=== PATIENT | male | born 1965 | race Caucasian/White ===

== ENCOUNTER 2020-12-26 18:41 | Observation (INO) | payer OTHER ==
[2020-12-26] MEDS ORDERED: Sodium Chloride 0.9% 1,000 ML IV ONE ×3 (19:07→23:22)
--- NOTE | 2020-12-26 20:17 | CR ---
INDICATION: Syncope TECHNIQUE: Chest 1 view. COMPARISON: 08/23/2014 FINDINGS: Cardiovascular and mediastinum: Heart size and vasculature are normal in caliber and appearance. Mediastinum is within normal limits. Lungs and pleural space: Lungs are clear. No sign of infiltrate. Multiple bilateral sub centimeter probable calcified granulomas. No sign of pleural effusion. No pneumothorax. Bones and soft tissues: No significant findings. IMPRESSION: No acute findings. Multiple bilateral probable subcentimeter calcified granulomas. Dictated by Db To MD @ 12/26/2020 8:16:41 PM (Electronically Signed)
--- NOTE | 2020-12-26 20:19 | CT ---
Indication: SYNCOPE W HEAD INJURY Technique: CT of the head without contrast. Coronal and sagittal reformats. Bone and soft tissue windows. Comparison: No prior studies available for comparison at this institution. Findings: Small hyperdense focus in the extra-axial space along the right anterior frontal cortex concerning for small subarachnoid hemorrhage (series 205, image 48). No evidence of acute cortical infarction. No mass effect or midline shift. Normal cerebral volume. The ventricles are normal in size, shape and contour. There is normal garcia and white matter differentiation. A few small foci of hypoattenuation in the right frontal and left parietal holloway radiata likely represent remote lacunar infarcts or chronic small vessel white matter ischemic changes. The orbital contents are normal. No calvarial fractures. No lytic or sclerotic osseous lesions within the calvarium or skull base. Scalp and other imaged soft tissue structures are normal. Mastoid air cells are clear. Paranasal sinuses are well aerated. The nasal septum is deviated to the right Impression: 1. Small hyperdense focus in the extra-axial space along the right anterior frontal cortex concerning for small subarachnoid hemorrhage. 2. Few small foci of hypoattenuation in the right frontal and left parietal holloway radiata likely represent remote lacunar infarcts or chronic small vessel white matter ischemic changes. Please note that all CT scans at this facility use dose modulation, iterative reconstruction, and/or weight-based dosing when appropriate to reduce radiation dose to as low as reasonably achievable. Dictated by Db Toledo MD @ 12/26/2020 8:17:55 PM (Electronically Signed)
[2020-12-26 21:21] LABS: BLOOD UREA NITROGEN,BUN 27 mg/dL (7.0-18.0); CARBON DIOXIDE,CO2 28.9 mmol/L (21.0-32.0); CHLORIDE,CL 96 mmol/L (98-107); GLUCOSE RANDOM 408 mg/dL (74-106); POTASSIUM,K 3.4 mmol/L (3.5-5.1); SODIUM,NA 134 mmol/L (136-148)
[2020-12-26] MEDS ORDERED: Iopamidol 755 MG/ML 500 ML Multipack Bottle IVPUSH STA (21:50)
[2020-12-26] MEDS ORDERED: Diphtheria,Pertussis(Acell),Tetanus Vaccine 0.5 ML Syringe IM ONE (21:51)
--- NOTE | 2020-12-26 21:58 | EDM.PDOC ---
<SarojSamir phelps - Last Filed: 12/27/20 03:14> ED HPI GENERAL MEDICAL PROBLEM - General Chief Complaint: General Stated Complaint: PASSED OUT Time Seen by Provider: 12/26/20 19:07 - History of Present Illness INITIAL COMMENTS - FREE TEXT/NARRATIVE: 3:15 AM: Patient's presentation reviewed. Patient's CT scan of his head reveals a small subarachnoid and is frontal cortex. Patient has a CTA which did not r eveal any evidence of aneurysm. Given the patient's presentation, this appears to be most likely consistent with a traumatic subarachnoid hemorrhage from syncope. Repeat CT scan of the head was performed here in the ED without any change in the size of the subarachnoid hemorrhage that was identified at the earlier CT scan of his head. Patient will need admission to the hospital secondary to his history of hypertension, diabetes and syncopal episode. Patient was noted to have Covid positive. It appears that he likely passed out secondary to vasovagal versus dehydration when he started having severe abdominal cramping and diarrhea resulting in him having an accident on himself. Given his high risk factors however I feel the patient will need to be admitted to the hospital for further evaluation of syncope. Patient did fall down and hit the left side of his face and there are is significant amount of facial abrasions to that area. Case has been discussed with Dr. Vilchis at [facility] and she feels that this patient likely has a small subarachnoid hemorrhage that is traumatic in nature. Given that there has been no changes from the CT scan earlier today she feels that the patient would not need further emergent intervention from a neurological or neurosurgical standpoint. She has recommended no further CT scans unless the patient has any change or deteriora tion in his mental condition. Patient has been given IV fluids here in the ED. Patient will be admitted to Dr. Lubin service. I have discussed the case with Dr. Lubin who is agreed to admit patient under observation for further monitoring and evaluation as well as hydration. - Related Data Allergies Allergy/AdvReac Type Severity Reaction Status Date / Time No Known Allergies Allergy Verified 12/27/20 04:52 Home Meds: Home Meds Venlafaxine [Effexor XR] 150 mg PO DAILY 07/22/14 [History] Chlorthalidone 12.5 mg PO DAILY #10 tab 12/27/20 [Rx] Losartan Potassium 100 mg PO DAILY 12/27/20 [History] Metoprolol Succinate 200 mg PO DAILY 12/27/20 [History] Semaglutide [Ozempic] 1 mg SQ ASDIRECTED 12/27/20 [History] metFORMIN [Glucophage XR] 1,000 mg PO BIDMEALS 12/27/20 [History] ED ROS GENERAL - Review of Systems Review Of Systems: See Below ED EXAM, GENERAL - Physical Exam Exam: See Below #1 Interpretation EKG Interpretation Comments: EKG: As interpreted by ER physician: Saroj: Nonspecific ST-T wave abnormalities Normal axis No evidence of ST elevation HI Normal sinus rhythm heart rate of 65 December 26, 2020 7:10 PM Departure - Departure Time of Disposition: 03:18 Disposition: Refer to Observation Condition: Good Clinical Impression: Hemorrhage, subarachnoid, traumatic, Syncope, Dehydration, COVID-19 virus infection, Hyperglycemia - Discharge Information <RosiSamira - Last Filed: 12/28/20 10:03> ED HPI GENERAL MEDICAL PROBLEM - General Source of Information: Reports: Patient History Limitations: Reports: No Limitations - History of Present Illness INITIAL COMMENTS - FREE TEXT/NARRATIVE: HISTORY AND PHYSICAL: History of present illness: Patient is a 55-year-old male, with a history of type 2 diabetes and hypertension, who presents emergency room today via EMS with concern of a syncopal event and head injury that occurred just prior to travel to the emergency room. Patient states that he was at the gas station filling up gas. Patient states while he was standing next to his vehicle, he began to feel dizzy/lightheaded. Patient states because of this, he started walking into the gas station as he was going to try to find somewhere to sit. Patient states in the process of walking into the gas station, the dizziness lightheadedness became worse and he had an incontinent of stool episode and states that he began falling forward. Patient states that he does not remember the event from here but states that he woke up on the ground and had sustained abrasions to the left side of his face. Patient states he is unsure of his tetanus status and would like to update this today. Patient states that he has never had this occur before. Patient denies any current symptoms at this time. Patient denies fever, chills, chest pain, shortness of breath, or cough. Denies headache, neck stiff ness, change in vision. Denies nausea, vomiting, abdominal pain, constipation, or dysuria. Has not noted any blood in urine or stool. Patient has been eating and drinking appropriately. Review of systems: As per history of present illness and below otherwise all systems reviewed and negative. Past medical history: As per history of present illness and as reviewed below otherwise noncontributory. Surgical history: As per history of present illness and as reviewed below otherwise noncontributory. Social history: See social history for further information Family history: As per history of present illness and as reviewed below otherwise noncontributory. Physical exam: General: Patient is alert, oriented, and in no acute distress. Patient laying comfortably on exam table. Vitals stable and reviewed by me. HEENT: See skin. Otherwise, atraumatic, normocephalic, pupils equal and reactive bilaterally, negative for conjunctival pallor or scleral icterus, mucous membranes moist, throat clear, neck supple, nontender, trachea midline. No drooling or trismus noted. No meningeal signs. No hot potato voice noted. Lungs: Clear to auscultation, breath sounds equal bilaterally, chest nontender. Heart: S1S2, regular rate and rhythm without overt murmur Abdomen: Soft, nondistended, nontender. Negative for masses or hepatosplenomegaly. Negative for costovertebral tenderness. Pelvis: Stable nontender. Genitourinary: Deferred. Rectal: Deferred. Note that patient is incontinent of stool on exam. Skin: Multiple superficial abrasions of the left sided cheek without crepitus to palpation. Patient also has some superficial abrasions of his nose and upper lip without laceration. Otherwise, intact, warm, dry. No lesions or rashes noted. Extremities: Atraumatic, negative for cords or calf pain. Neurovascular unremarkable. Neuro: Awake, alert, oriented. Cranial nerves II through XII unremarkable. Cerebellum unremarkable. Motor and sensory unremarkable throughout. Exam nonfocal. Notes: Patient is a 55-year-old male who resents emergency room today via EMS after a syncopal event that was preceded with dizziness and head injury. Upon arrival to the ED, patient does have multiple superficial abrasions to the left side of his face nose and lip without laceration. Patient is also incontinent of stool on exam. Otherwise, patient is vitally stable and has no other symptoms at this time. Will obtain cardiac evaluation, head CT given syncopal event with head injury, provide patient with a change of clothing and shower, and reassess patient. See Dr. Kyle dictation for specific EKG interpretation. However, normal sinus rhythm without STEMI. CBC shows mild thrombocytopenia with platelet count of 127, otherwise mild derangements of CBC unremarkable. CMP shows mild hyponatremia at 134, hypokalemia at 3.4, hyperchloremia 96. Creatinine is elevated at 1.6 and BUN is elevated at 27. Glucose is elevated at 408. Troponin negative. Head CT shows no acute findings. Multiple bilateral probable subcentimeter calcified granulomas. All incidental findings of imaging today discussed with patient and have this followed up at a later date with his primary care provider. Will obtain Ang Head/Neck Head CT w/o contrast shows small hyperdense focus in the extra-axial space along the right anterior frontal cortex concerning for a small subarachnoid hemorrhage. Few small foci of hypoattenuation in the right frontal and left parietal holloway radiata likely representing remote lacunar infarcts and chronic small vessel white matter ischemic changes. Dr. Kyle has assumed care of patient and will follow remaining diagnostics and disposition for patient. Diagnostics: EKG, CBC, CMP, UA, chest x-ray 1 view, troponin, head CT without contrast, angiography head and neck CT, COVID-19 Therapeutics: Normal saline, Tdap Impression: Syncope Superficial abrasions, multiple, facial Plan: Definitive disposition and diagnosis as appropriate pending reevaluation and review of above. Past Medical History HEENT History: Reports: None Cardiovascular History: Reports: Hypertension Respiratory History: Reports: None Gastrointestinal History: Reports: None Genitourinary History: Reports: None Musculoskeletal History: Reports: None Neurological History: Reports: None Psychiatric History: Reports: Depression Endocrine/Metabolic History: Reports: Diabetes, Type II Hematologic History: Reports: None Immunologic History: Reports: None Oncologic (Cancer) History: Reports: None Dermatologic History: Reports: None - Infectious Disease History Infectious Disease History: Reports: Chicken Pox - Past Surgical History Head Surgeries/Procedures: Reports: None Social & Family History - Tobacco Use Tobacco Use Status *Q: Never Tobacco User - Caffeine Use Caffeine Use: Reports: Coffee - Recreational Drug Use Recreational Drug Use: No ED ROS GENERAL - Review of Systems Review Of Systems: Comprehensive ROS is negative, except as noted in HPI. ED EXAM, GENERAL - Physical Exam Exam: See Below (see dictation) Course - Vital Signs Last Recorded V/S: Last Vital Signs Temp 97.4 F 12/28/20 08:10 Pulse 80 12/28/20 08:39 Resp 18 12/28/20 08:10 BP 148/83 H 12/28/20 08:39 Pulse Ox 94 L 12/28/20 08:10 Orthostatic Blood Pressure [ 117/77 Standing] Orthostatic Blood Pressure [ 121/62 Sitting] Orthostatic Blood Pressure [ 138/82 Supine] - Orders/Labs/Meds Orders: Medication Orders Acetaminophen (Acetaminophen 325 Mg Tab) 650 mg PO Q4H PRN PRN Reason: Pain Last Admin: 12/28/20 04:12 Dose: 650 mg Documented by: Admin: 12/27/20 21:53 Dose: 650 mg Documented by: Admin: 12/27/20 17:59 Dose: 650 mg Documented by: HERNESTO Albuterol/Ipratropium (Albuterol/Ipratropium 3.0-0.5 Mg/3 Ml Neb Soln) 3 ml NEB Q4HRRT PRN PRN Reason: Shortness of Breath Dextrose/Water (50% Dextrose In Water 50 Ml Syringe) 50 ml IVPUSH ASDIRECTED PRN PRN Reason: Hypoglycemia Glucagon (Glucagon,Human Recombinant 1 Mg Vial) 1 mg IM ASDIRECTED PRN PRN Reason: Hypoglycemia Pantoprazole Sodium 40 mg/ (Sodium Chloride) 10 mls @ 300 mls/hr IV Q24H [facility] Last Admin: 12/28/20 06:38 Dose: 300 mls/hr Documented by: Infusion: 12/27/20 06:53 Dose: 300 mls/hr Documented by: Admin: 12/27/20 06:51 Dose: 300 mls/hr Documented by: SINDI Insulin Aspart (Insulin Aspart 100 Units/Ml 3 Ml Pen) 0 unit SUBCUT TIDAC [facility]; Protocol Last Admin: 12/28/20 07:46 Dose: 3 unit Documented by: Admin: 12/27/20 17:46 Dose: 3 unit Documented by: Admin: 12/27/20 11:55 Dose: Not Given Documented by: Admin: 12/27/20 09:37 Dose: Not Given Documented by: HERNESTO Losartan Potassium (Losartan 50 Mg Tab) 100 mg PO DAILY [facility] Last Admin: 12/28/20 08:39 Dose: 100 mg Documented by: HERNESTO Metoprolol Succinate (Metoprolol Succinate 100 Mg Tab.Er) 200 mg PO DAILY [facility] Last Admin: 12/28/20 08:39 Dose: 200 mg Documented by: Admin: 12/27/20 10:11 Dose: 200 mg Documented by: HERNESTO Ondansetron HCl (Ondansetron 4 Mg/2 Ml Sdv) 4 mg IVPUSH Q4H PRN PRN Reason: Nausea/Vomiting Venlafaxine HCl (Venlafaxine 75 Mg Cap.Er) 150 mg PO DAILY [facility] Last Admin: 12/28/20 08:39 Dose: 150 mg Documented by: Admin: 12/27/20 14:48 Dose: 150 mg Documented by: HERNESTO Labs: Laboratory Tests 12/26/20 12/26/20 12/26/20 Range/Units 20:51 20:51 22:04 WBC 7.10 (4.0-11.0) K/uL RBC 4.92 (4.50-5.90) M/uL Hgb 15.7 (13.0-17.0) g/dL Hct 41.5 (38.0-50.0) % MCV 84.3 (80.0-98.0) fL MCH 31.9 (27.0-32.0) pg MCHC 37.8 H (31.0-37.0) g/dL RDW Std Deviation 38.1 (28.0-62.0) fl RDW Coeff of Ivon 13 (11.0-15.0) % Plt Count 127 L (150-400) K/uL MPV 10.50 (7.40-12.00) fL Neut % (Auto) 72.4 (48.0-80.0) % Lymph % (Auto) 19.2 (16.0-40.0) % Amador % (Auto) 8.0 (0.0-15.0) % Eos % (Auto) 0.3 (0.0-7.0) % Baso % (Auto) 0.1 (0.0-1.5) % Neut # (Auto) 5.1 (1.4-5.7) K/uL Lymph # (Auto) 1.4 (0.6-2.4) K/uL Amador # (Auto) 0.6 (0.0-0.8) K/uL Eos # (Auto) 0.0 (0.0-0.7) K/uL Baso # (Auto) 0.0 (0.0-0.1) K/uL Nucleated RBC % 0.0 /100WBC Nucleated RBCs # 0 K/uL Sodium 134 L (136-148) mmol/L Potassium 3.4 L (3.5-5.1) mmol/L Chloride 96 L (98-107) mmol/L Carbon Dioxide 28.9 (21.0-32.0) mmol/L BUN 27 H (7.0-18.0) mg/dL Creatinine 1.6 H (0.8-1.3) mg/dL Est Cr Clr Drug Dosing 54.25 mL/min Estimated GFR (MDRD) 44.8 ml/min Glucose 408 H (74-106) mg/dL POC Glucose (70-99) mg/dL Calcium 7.3 L (8.5-10.1) mg/dL Total Bilirubin 1.0 (0.2-1.0) mg/dL AST 23 (15-37) IU/L ALT 53 (14-63) IU/L Alkaline Phosphatase 89 (46-116) U/L Troponin I < 0.050 (0.000-0.056) ng/mL Total Protein 5.8 L (6.4-8.2) g/dL Albumin 3.0 L (3.4-5.0) g/dL Globulin 2.8 (2.6-4.0) g/dL Albumin/Globulin Ratio 1.1 (0.9-1.6) SARS-CoV-2 RNA ([place]) POSITIVE H (NEGATIVE) 12/26/20 Range/Units 22:12 WBC (4.0-11.0) K/uL RBC (4.50-5.90) M/uL Hgb (13.0-17.0) g/dL Hct (38.0-50.0) % MCV (80.0-98.0) fL MCH (27.0-32.0) pg MCHC (31.0-37.0) g/dL RDW Std Deviation (28.0-62.0) fl RDW Coeff of Ivon (11.0-15.0) % Plt Count (150-400) K/uL MPV (7.40-12.00) fL Neut % (Auto) (48.0-80.0) % Lymph % (Auto) (16.0-40.0) % Amador % (Auto) (0.0-15.0) % Eos % (Auto) (0.0-7.0) % Baso % (Auto) (0.0-1.5) % Neut # (Auto) (1.4-5.7) K/uL Lymph # (Auto) (0.6-2.4) K/uL Amador # (Auto) (0.0-0.8) K/uL Eos # (Auto) (0.0-0.7) K/uL Baso # (Auto) (0.0-0.1) K/uL Nucleated RBC % /100WBC Nucleated RBCs # K/uL Sodium (136-148) mmol/L Potassium (3.5-5.1) mmol/L Chloride (98-107) mmol/L Carbon Dioxide (21.0-32.0) mmol/L BUN (7.0-18.0) mg/dL Creatinine (0.8-1.3) mg/dL Est Cr Clr Drug Dosing mL/min Estimated GFR (MDRD) ml/min Glucose (74-106) mg/dL POC Glucose 361 H (70-99) mg/dL Calcium (8.5-10.1) mg/dL Total Bilirubin (0.2-1.0) mg/dL AST (15-37) IU/L ALT (14-63) IU/L Alkaline Phosphatase (46-116) U/L Troponin I (0.000-0.056) ng/mL Total Protein (6.4-8.2) g/dL Albumin (3.4-5.0) g/dL Globulin (2.6-4.0) g/dL Albumin/Globulin Ratio (0.9-1.6) SARS-CoV-2 RNA ([place]) (NEGATIVE) Meds: Medications Generic Name Dose Route Start Last Admin Trade Name Freq PRN Reason Stop Dose Admin Acetaminophen 650 mg 10/01/21 05:54 12/28/20 04:12 Acetaminophen 325 Mg Tab PO 650 mg Q4H PRN Administration Pain Albuterol/Ipratropium 3 ml 12/27/20 05:55 Albuterol/Ipratropium 3.0-0.5 Mg/3 Ml Neb Soln NEB Q4HRRT PRN Shortness of Breath Dextrose/Water 50 ml 12/27/20 05:53 50% Dextrose In Water 50 Ml Syringe IVPUSH ASDIRECTED PRN Hypoglycemia Glucagon 1 mg 12/27/20 05:53 Glucagon,Human Recombinant 1 Mg Vial IM ASDIRECTED PRN Hypoglycemia Pantoprazole Sodium 40 mg/ 10 mls @ 300 mls/hr 12/27/20 06:00 12/28/20 06:38 Sodium Chloride IV 300 mls/hr Q24H JONATHAN Administration Insulin Aspart 0 unit 12/27/20 07:30 12/28/20 07:46 Insulin Aspart 100 Units/Ml 3 Ml Pen SUBCUT 3 unit TIDAC JONATHAN Administration Protocol Losartan Potassium 100 mg 12/28/20 09:00 12/28/20 08:39 Losartan 50 Mg Tab PO 100 mg DAILY JONATHAN Administration Metoprolol Succinate 200 mg 12/27/20 09:00 12/28/20 08:39 Metoprolol Succinate 100 Mg Tab.Er PO 200 mg DAILY JONATHAN Administration Ondansetron HCl 4 mg 12/27/20 05:55 Ondansetron 4 Mg/2 Ml Sdv IVPUSH Q4H PRN Nausea/Vomiting Venlafaxine HCl 150 mg 12/27/20 14:15 12/28/20 08:39 Venlafaxine 75 Mg Cap.Er PO 150 mg DAILY JONATHAN Administration Discontinued Medications Generic Name Dose Route Start Last Admin Trade Name Freq PRN Reason Stop Dose Admin Diphtheria/Tetanus/Acell Pertussis 0.5 ml 12/26/20 21:51 12/26/20 22:06 Diphtheria,Pertussis(Acell),Tetanus Vaccine 0.5 Ml Syringe IM 12/26/20 21:52 0.5 ml .ONCE ONE Administration Enoxaparin Sodium 40 mg 12/27/20 06:00 12/27/20 07:56 Enoxaparin 40 Mg/0.4 Ml Syringe SUBCUT Not Given Q24H JONATHAN Sodium Chloride 1,000 mls @ 999 mls/hr 12/26/20 19:07 12/26/20 19:19 Normal Saline IV 12/26/20 20:07 999 mls/hr BOLUS ONE Administration Sodium Chloride 1,000 mls @ 999 mls/hr 12/26/20 22:25 12/26/20 22:28 Normal Saline IV 12/26/20 23:25 999 mls/hr STAT ONE Administration Sodium Chloride 1,000 mls @ 999 mls/hr 12/26/20 23:22 12/26/20 23:49 Normal Saline IV 12/27/20 00:22 999 mls/hr .Bolus ONE Administration Lactated Ringer's 1,000 mls @ 100 mls/hr 12/27/20 06:00 12/27/20 07:53 Ringers, Lactated IV 100 mls/hr ASDIRECTED JONATHAN Administration Iopamidol 100 ml 12/26/20 21:50 12/26/20 21:51 Iopamidol 755 Mg/Ml 500 Ml Multipack Bottle IVPUSH 12/26/20 21:51 100 ml ONETIME STA Administration Potassium Chloride 40 meq 12/27/20 07:48 12/27/20 10:12 Potassium Chloride 20 Meq Tab.Er PO 12/27/20 07:49 40 meq ONETIME ONE Administration Potassium Chloride 40 meq 12/28/20 07:35 12/28/20 08:40 Potassium Chloride 20 Meq Tab.Er PO 12/28/20 07:36 40 meq ONETIME ONE Administration
--- NOTE | 2020-12-26 22:35 | CT ---
CT ANGIOGRAM HEAD AND NECK DATE: 12/26/2020 CLINICAL HISTORY: Patient with post-traumatic subarachnoid hemorrhage. TECHNIQUE: Standard helical CT image acquisition through the head and neck was performed after intravenous contrast bolus enhancement. Multiplanar reconstructed images were performed and interpreted. COMPARISON: CT same day. FINDINGS: The origins of the great vessels from the aortic arch are patent. The origin of the right vertebral artery is patent. The origin of the left vertebral artery is patent. The common carotid arteries are patent There is no stenosis at the origin of the right internal carotid artery. There is no stenosis at the origin of the left internal carotid artery. The rest of the cervical segments of the internal carotid arteries are patent up to their intracranial segments. The intracranial segments of the internal carotid arteries are patent. The left vertebral artery is dominant. The cervical segments of the vertebral arteries are patent. The intracranial segments of the vertebral arteries are patent. The middle cerebral arteries are normal without aneurysm or proximal occlusion identified. The anterior cerebral arteries are normal without aneurysm or proximal occlusion identified. The anterior communicating artery is well visualized and appears normal. The basilar artery is normal without aneurysm or occlusion. The posterior cerebral arteries are normal without aneurysm or proximal occlusion. There is normal opacification of major intracranial venous structures. The visualized lung apices are unremarkable The thyroid gland is unremarkable. The soft tissues of the neck are unremarkable. There are degenerative changes in the cervical spine. IMPRESSION: Normal CT angiogram of the head and neck without intracranial aneurysms. Please note that all CT scans at this facility use dose modulation, iterative reconstruction, and/or weight-based dosing when appropriate to reduce radiation dose to as low as reasonably achievable. Dictated by: Maci Gipson MD @ 12/26/2020 22:34:09 (Electronically Signed)
--- NOTE | 2020-12-27 02:06 | CT ---
INDICATION: Headache. Injury. Follow-up possible intracranial hemorrhage. CT HEAD WITHOUT CONTRAST TECHNIQUE: Multiple axial CT images were performed through the head without intravenous contrast administration. COMPARISON: 12/26/[address] FINDINGS: There has been no significant change in the subtle small focus of extra-axial hyperdensity along the anterior aspect of the right frontal lobe as seen on images 49-50 of series 205, questionably representing a trace amount of subarachnoid hemorrhage. There is no mass effect or midline shift. There is very mild diffuse age-related brain atrophy. Ventricular size and configuration are within normal limits for the patient`s age. Welch-white differentiation is within normal limits. There is unchanged mild patchy hypodensity in the periventricular white matter, a nonspecific finding which most likely reflects chronic small vessel ischemic change. Osseous structures are within normal limits and no fractures are seen. Included portions of the paranasal sinuses and mastoid air cells are normally aerated. IMPRESSION: 1. Unchanged small hyperdensity along the anterior aspect of the right frontal lobe, questionably representing a trace amount of subarachnoid hemorrhage. 2. Mild age-related brain atrophy and white matter hypodensity consistent with chronic small vessel ischemic change. FLOR BRUNO MD [employer] Dictated by Juan Bruno MD @ 12/27/2020 1:57:40 AM Please note that all CT scans at this facility use dose modulation, iterative reconstruction, and/or weight-based dosing when appropriate to reduce radiation dose to as low as reasonably achievable. Dictated by: Juan Bruno MD @ 12/27/2020 02:05:43 (Electronically Signed)
[2020-12-27] MEDS ORDERED: Glucagon,Human Recombinant 1 MG Vial IM PRN (05:53)
[2020-12-27] MEDS ORDERED: 50% Dextrose in Water 50 ML Syringe IVPUSH PRN (05:53)
[2020-12-27] MEDS ORDERED: Albuterol/Ipratropium 3.0-0.5 MG/3 ML Neb Soln NEB PRN (05:55)
[2020-12-27] MEDS ORDERED: Ondansetron 4 MG/2 ML SDV IVPUSH PRN (05:55)
[2020-12-27] MEDS ORDERED: Enoxaparin 40 MG/0.4 ML Syringe SUBCUT SCH (06:00)
[2020-12-27] MEDS ORDERED: Lactated Ringers 1,000 ML IV SCH (06:00)
[2020-12-27] MEDS: Pantoprazole 40 MG in Sodium Chloride 0.9% 10 ML IV SCH (06:51)
--- NOTE | 2020-12-27 07:08 | PCM.HP.2 ---
<Quinton Darling - Last Filed: 12/27/20 21:29> H&P History of Present Illness - General Date of Service: 12/27/20 Admit Problem/Dx: Admission Diagnosis/Problem Admission Diagnosis/Problem Syncope - History of Present Illness Initial Comments - Free Text/Narative: 55-year-old male presents to the ED via EMS due to a syncopal episode and head injury. Patient states that [place] station [place] which time he began to feel dizzy and lightheaded. Patient also states severe abdominal pain followed by an immediate bout of diarrhea at which time patient suddenly fell to the ground. Patient did hit his head but cannot recall when it happened. Patient is not sure if syncopal episode occurred secondary to dehydration or his immediate diarrheal episode. Patient admitted to medical floor for observation of syncopal episode. Patient's past medical history includes hypertension, obesity. Patient is currently taking metoprolol 200 mg, losartan 100 mg, chlorthalidone 25 mg. Patient states starting chlorthalidone few weeks ago. Patient denies any other syncopal episode, denies history of fever, chills, nausea, vomiting, abdominal pain, headache, chest pain, dizziness, lightheadedness. ER course laboratory to include white blood cell count 7.1, hemoglobin 15.7, hematocrit 41.5, platelet 127, sodium 134, potassium 3.4, platelets, creatinine 1.6, glucose 408. Patient is Covid positive, but not hypoxic. 96% O2 saturation on room air. Repeat CT impression unchanged small hyperdensity along the anterior aspect of the right frontal lobe, questionably representing a trace amount of subarachnoid hemorrhage. CTA head/neck, normal impression. Dr. Vilchis, neurology was contacted regarding the subarachnoid hemorrhage. Per documentation no neurological intervention necessary at this time. - Related Data Allergies/Adverse Reactions: Allergies Allergy/AdvReac Type Severity Reaction Status Date / Time No Known Allergies Allergy Verified 12/27/20 04:52 Home Medications: Home Meds Venlafaxine [Effexor XR] 150 mg PO DAILY 07/22/14 [History] Chlorthalidone 12.5 mg PO DAILY #10 tab 12/27/20 [Rx] Losartan Potassium 100 mg PO DAILY 12/27/20 [History] Metoprolol Succinate 200 mg PO DAILY 12/27/20 [History] Semaglutide [Ozempic] 1 mg SQ ASDIRECTED 12/27/20 [History] metFORMIN [Glucophage XR] 1,000 mg PO BIDMEALS 12/27/20 [History] Past Medical History HEENT History: Reports: None Other HEENT History: Left ear hearing deficit Cardiovascular History: Reports: Hypertension Respiratory History: Reports: None Gastrointestinal History: Reports: None Genitourinary History: Reports: None Musculoskeletal History: Reports: None Neurological History: Reports: None Psychiatric History: Reports: Anxiety, Depression Endocrine/Metabolic History: Reports: Diabetes, Type II, Obesity/BMI 30+ Hematologic History: Reports: None Immunologic History: Reports: None Oncologic (Cancer) History: Reports: None Dermatologic History: Reports: None - Infectious Disease History Infectious Disease History: Reports: Chicken Pox - Past Surgical History Head Surgeries/Procedures: Reports: None Cardiovascular Surgical History: Reports: Cardiac Ablation Social & Family History - Tobacco Use Tobacco Use Status *Q: Never Tobacco User Second Hand Smoke Exposure: No - Caffeine Use Caffeine Use: Reports: Coffee - Recreational Drug Use Recreational Drug Use: No H&P Review of Systems - Review of Systems: Review Of Systems: See Below General: Denies: Fever, Chills, Weakness, Fatigue, Decreased Appetite HEENT: Denies: Eye Pain, Headaches, Hearing Changes, Vertigo, Visual Changes Pulmonary: Denies: Shortness of Breath, Cough Cardiovascular: Denies: Chest Pain, Dyspnea on Exertion, Orthopnea, Edema Gastrointestinal: Denies: Abdominal Pain, Constipation, Diarrhea, Decreased Appetite, Distension, Nausea Psychiatric: Denies: Confusion Neurological: Denies: Confusion, Dizziness, Headache, Syncope, Difficulty Walking Exam - Exam Exam: See Below - Vital Signs Vital Signs: Last Vital Signs Temp 97.8 F 12/27/20 04:53 Pulse 70 12/27/20 04:53 Resp 18 12/27/20 04:53 BP 141/86 H 12/27/20 04:53 Pulse Ox 96 12/27/20 04:53 Orthostatic Blood Pressure [ 117/77 Standing] Orthostatic Blood Pressure [ 121/62 Sitting] Orthostatic Blood Pressure [ 138/82 Supine] Weight: 116.437 kg - Exam General: Alert, Oriented Lungs: Clear to Auscultation, Normal Respiratory Effort Cardiovascular: Regular Rate, Regular Rhythm GI/Abdominal Exam: Soft, Non-Tender, No Distention Extremities: No Pedal Edema Neuro Extensive - Mental Status: Alert, Oriented x3 Psychiatric: Alert - Patient Data Lab Results Last 24 hrs: Laboratory Results - last 24 hr 12/26/20 12/26/20 12/26/20 Range/Units 20:51 20:51 22:04 WBC 7.10 (4.0-11.0) K/uL RBC 4.92 (4.50-5.90) M/uL Hgb 15.7 (13.0-17.0) g/dL Hct 41.5 (38.0-50.0) % MCV 84.3 (80.0-98.0) fL MCH 31.9 (27.0-32.0) pg MCHC 37.8 H (31.0-37.0) g/dL RDW Std Deviation 38.1 (28.0-62.0) fl RDW Coeff of Ivon 13 (11.0-15.0) % Plt Count 127 L (150-400) K/uL MPV 10.50 (7.40-12.00) fL Neut % (Auto) 72.4 (48.0-80.0) % Lymph % (Auto) 19.2 (16.0-40.0) % Sibley % (Auto) 8.0 (0.0-15.0) % Eos % (Auto) 0.3 (0.0-7.0) % Baso % (Auto) 0.1 (0.0-1.5) % Neut # (Auto) 5.1 (1.4-5.7) K/uL Lymph # (Auto) 1.4 (0.6-2.4) K/uL Sibley # (Auto) 0.6 (0.0-0.8) K/uL Eos # (Auto) 0.0 (0.0-0.7) K/uL Baso # (Auto) 0.0 (0.0-0.1) K/uL Nucleated RBC % 0.0 /100WBC Nucleated RBCs # 0 K/uL Sodium 134 L (136-148) mmol/L Potassium 3.4 L (3.5-5.1) mmol/L Chloride 96 L (98-107) mmol/L Carbon Dioxide 28.9 (21.0-32.0) mmol/L BUN 27 H (7.0-18.0) mg/dL Creatinine 1.6 H (0.8-1.3) mg/dL Est Cr Clr Drug Dosing 54.25 mL/min Estimated GFR (MDRD) 44.8 ml/min Glucose 408 H (74-106) mg/dL POC Glucose (70-99) mg/dL Calcium 7.3 L (8.5-10.1) mg/dL Total Bilirubin 1.0 (0.2-1.0) mg/dL AST 23 (15-37) IU/L ALT 53 (14-63) IU/L Alkaline Phosphatase 89 (46-116) U/L Troponin I < 0.050 (0.000-0.056) ng/mL Total Protein 5.8 L (6.4-8.2) g/dL Albumin 3.0 L (3.4-5.0) g/dL Globulin 2.8 (2.6-4.0) g/dL Albumin/Globulin Ratio 1.1 (0.9-1.6) SARS-CoV-2 RNA ([place]) POSITIVE H (NEGATIVE) 12/26/20 12/27/20 Range/Units 22:12 06:58 WBC (4.0-11.0) K/uL RBC (4.50-5.90) M/uL Hgb (13.0-17.0) g/dL Hct (38.0-50.0) % MCV (80.0-98.0) fL MCH (27.0-32.0) pg MCHC (31.0-37.0) g/dL RDW Std Deviation (28.0-62.0) fl RDW Coeff of Ivon (11.0-15.0) % Plt Count (150-400) K/uL MPV (7.40-12.00) fL Neut % (Auto) (48.0-80.0) % Lymph % (Auto) (16.0-40.0) % Sibley % (Auto) (0.0-15.0) % Eos % (Auto) (0.0-7.0) % Baso % (Auto) (0.0-1.5) % Neut # (Auto) (1.4-5.7) K/uL Lymph # (Auto) (0.6-2.4) K/uL Sibley # (Auto) (0.0-0.8) K/uL Eos # (Auto) (0.0-0.7) K/uL Baso # (Auto) (0.0-0.1) K/uL Nucleated RBC % /100WBC Nucleated RBCs # K/uL Sodium (136-148) mmol/L Potassium (3.5-5.1) mmol/L Chloride (98-107) mmol/L Carbon Dioxide (21.0-32.0) mmol/L BUN (7.0-18.0) mg/dL Creatinine (0.8-1.3) mg/dL Est Cr Clr Drug Dosing mL/min Estimated GFR (MDRD) ml/min Glucose (74-106) mg/dL POC Glucose 361 H 244 H (70-99) mg/dL Calcium (8.5-10.1) mg/dL Total Bilirubin (0.2-1.0) mg/dL AST (15-37) IU/L ALT (14-63) IU/L Alkaline Phosphatase (46-116) U/L Troponin I (0.000-0.056) ng/mL Total Protein (6.4-8.2) g/dL Albumin (3.4-5.0) g/dL Globulin (2.6-4.0) g/dL Albumin/Globulin Ratio (0.9-1.6) SARS-CoV-2 RNA ([place]) (NEGATIVE) Result Diagrams: 12/26/20 20:51 12/26/20 20:51 Sepsis Event Note - Evaluation Sepsis Screening Result: No Definite Risk - Focused Exam Vital Signs: Vital Signs Temp Pulse Resp BP Pulse Ox 12/27/20 04:53 97.8 F 70 18 141/86 H 96 12/27/20 04:22 67 17 137/84 95 12/27/20 01:37 67 18 148/91 H 95 12/26/20 23:49 63 17 136/90 96 - Problem List (1) Hypertension SNOMED Code(s): 23686975 ICD Code: I10 - ESSENTIAL (PRIMARY) HYPERTENSION Status: Acute (2) Dehydration SNOMED Code(s): 65263452 ICD Code: E86.0 - DEHYDRATION Status: Acute (3) Hemorrhage, subarachnoid, traumatic SNOMED Code(s): 946794300, 047293625 ICD Code: S06.6X9A - TRAUM SUBRAC HEM W LOC OF UNSP DURATION, INIT Status: Acute (4) Syncope SNOMED Code(s): 072423088 ICD Code: R55 - SYNCOPE AND COLLAPSE Status: Acute Problem List Initiated/Reviewed/Updated: Yes Orders Last 24hrs: Active Orders 24 hr Category Date Time Status Patient Status [ADT] Routine ADT 12/27/20 03:03 Active Accu Check [Blood Glucose Check, Bedside] [] TIDAC Care 12/27/20 06:30 Active Glucose [Blood Glucose Check, Bedside] [] ONETIME Care 12/26/20 20:06 Active Orthostatic Vital Signs [] ASDIRECTED Care 12/26/20 19:20 Active Oxygen Therapy [RC] ASDIRECTED Care 12/27/20 05:57 Active Pulse Oximetry [] ASDIRECTED Care 12/27/20 05:57 Active RT Aerosol Therapy [] ASDIRECTED Care 12/27/20 05:56 Active Telemetry Monitoring [Cardiac Monitoring] [] Q8H Care 12/27/20 04:33 Active Vaccine to be Administered/Admin Charge [] ASDIRECTED Care 12/26/20 21:51 Active Vital Signs [RC] Q4H Care 12/27/20 05:58 Active [employer] Diet [DIET] Diet 12/27/20 Breakfast Active Acetaminophen [TylenoL] Med 12/27/20 05:54 Active 650 mg PO Q4H PRN Albuterol/Ipratropium [DuoNeb 3.0-0.5 MG/3 ML] Med 12/27/20 05:55 Active 3 ml NEB Q4HRRT PRN Dextrose 50% in Water Med 12/27/20 05:53 Active 50 ml IVPUSH ASDIRECTED PRN Enoxaparin [Lovenox] Med 12/27/20 06:00 Active 40 mg SUBCUT Q24H Glucagon,Human Recombinant [GlucaGen] Med 12/27/20 05:53 Active 1 mg IM ASDIRECTED PRN Insulin Aspart [NovoLOG] Med 12/27/20 07:30 Active See Protocol SUBCUT TIDAC Lactated Ringers [Ringers, Lactated] 1,000 ml Med 12/27/20 06:00 Active IV ASDIRECTED Ondansetron [Zofran] Med 12/27/20 05:55 Active 4 mg IVPUSH Q4H PRN Pantoprazole [ProTONIX IV] 40 mg Med 12/27/20 06:00 Active Sodium Chloride 0.9% [Normal Saline] 10 ml IV Q24H Medication Orders Acetaminophen (Acetaminophen 325 Mg Tab) 650 mg PO Q4H PRN PRN Reason: Pain Albuterol/Ipratropium (Albuterol/Ipratropium 3.0-0.5 Mg/3 Ml Neb Soln) 3 ml NEB Q4HRRT PRN PRN Reason: Shortness of Breath Dextrose/Water (50% Dextrose In Water 50 Ml Syringe) 50 ml IVPUSH ASDIRECTED PRN PRN Reason: Hypoglycemia Enoxaparin Sodium (Enoxaparin 40 Mg/0.4 Ml Syringe) 40 mg SUBCUT Q24H JONATHAN Glucagon (Glucagon,Human Recombinant 1 Mg Vial) 1 mg IM ASDIRECTED PRN PRN Reason: Hypoglycemia Lactated Ringer's (Ringers, Lactated) 1,000 mls @ 100 mls/hr IV ASDIRECTED JONATHAN Pantoprazole Sodium 40 mg/ (Sodium Chloride) 10 mls @ 300 mls/hr IV Q24H JONATHAN Last Admin: 12/27/20 06:51 Dose: 300 mls/hr Documented by: [email or web address] Insulin Aspart (Insulin Aspart 100 Units/Ml 3 Ml Pen) 0 unit SUBCUT TIDAC JONATHAN; Protocol Ondansetron HCl (Ondansetron 4 Mg/2 Ml Sdv) 4 mg IVPUSH Q4H PRN PRN Reason: Nausea/Vomiting Assessment/Plan Comment:: Syncopal episodevasovagal secondary to severe diarrheal episode versus dehydration. Will monitor patient overnight for continued diarrhea. Encourage oral hydration. Subarachnoid hemorrhage - Repeat CT impression unchanged small hyperdensity along the anterior aspect of the right frontal lobe, questionably representing a trace amount of subarachnoid hemorrhage. CTA head/neck, normal impression. Dr. Vilchis, neurology was contacted regarding the subarachnoid hemorrhage. Per documentation no neurological intervention necessary at this time. Hypertensionresume metoprolol and losartan. Hold chlorthalidone for now. Patient may need dosage reduced to 12.5 mg at discharge. Monitor blood pressure for hypotension. Diabetes -sliding scale insulin low, ADA diet Zofran, PPI, SCDs <Boris,Hooria - Last Filed: 12/28/20 15:37> H&P History of Present Illness - General Admit Problem/Dx: Admission Diagnosis/Problem Admission Diagnosis/Problem Syncope Exam - Vital Signs Vital Signs: Last Vital Signs Temp 36.3 C 12/28/20 08:10 Pulse 80 12/28/20 08:39 Resp 18 12/28/20 08:10 BP 148/83 H 12/28/20 08:39 Pulse Ox 94 L 12/28/20 08:10 Orthostatic Blood Pressure [ 117/77 Standing] Orthostatic Blood Pressure [ 121/62 Sitting] Orthostatic Blood Pressure [ 138/82 Supine] - Patient Data Lab Results Last 24 hrs: Laboratory Results - last 24 hr 12/27/20 12/28/20 12/28/20 Range/Units 17:15 05:55 05:55 WBC 5.04 (4.0-11.0) K/uL RBC 4.80 (4.50-5.90) M/uL Hgb 15.0 (13.0-17.0) g/dL Hct 40.2 (38.0-50.0) % MCV 83.8 (80.0-98.0) fL MCH 31.3 (27.0-32.0) pg MCHC 37.3 H (31.0-37.0) g/dL RDW Std Deviation 38.1 (28.0-62.0) fl RDW Coeff of Ivon 13 (11.0-15.0) % Plt Count 105 L (150-400) K/uL MPV 10.20 (7.40-12.00) fL Neut % (Auto) 59.9 (48.0-80.0) % Lymph % (Auto) 28.6 (16.0-40.0) % Sibley % (Auto) 11.1 (0.0-15.0) % Eos % (Auto) 0.2 (0.0-7.0) % Baso % (Auto) 0.2 (0.0-1.5) % Neut # (Auto) 3.0 (1.4-5.7) K/uL Lymph # (Auto) 1.4 (0.6-2.4) K/uL [place]y # (Auto) 0.6 (0.0-0.8) K/uL Eos # (Auto) 0.0 (0.0-0.7) K/uL Baso # (Auto) 0.0 (0.0-0.1) K/uL Nucleated RBC % 0.0 /100WBC Nucleated RBCs # 0 K/uL Sodium 137 (136-148) mmol/L Potassium 3.0 L (3.5-5.1) mmol/L Chloride 98 (98-107) mmol/L Carbon Dioxide 26.8 (21.0-32.0) mmol/L BUN 16 (7.0-18.0) mg/dL Creatinine 0.9 (0.8-1.3) mg/dL Est Cr Clr Drug Dosing 96.45 mL/min Estimated GFR (MDRD) > 60.0 ml/min Glucose 289 H (74-106) mg/dL POC Glucose 275 H (70-99) mg/dL Calcium 7.5 L (8.5-10.1) mg/dL 12/28/20 Range/Units 06:37 WBC (4.0-11.0) K/uL RBC (4.50-5.90) M/uL Hgb (13.0-17.0) g/dL Hct (38.0-50.0) % MCV (80.0-98.0) fL MCH (27.0-32.0) pg MCHC (31.0-37.0) g/dL RDW Std Deviation (28.0-62.0) fl RDW Coeff of Ivon (11.0-15.0) % Plt Count (150-400) K/uL MPV (7.40-12.00) fL Neut % (Auto) (48.0-80.0) % Lymph % (Auto) (16.0-40.0) % S[place]y % (Auto) (0.0-15.0) % Eos % (Auto) (0.0-7.0) % Baso % (Auto) (0.0-1.5) % Neut # (Auto) (1.4-5.7) K/uL Lymph # (Auto) (0.6-2.4) K/uL S[place]y # (Auto) (0.0-0.8) K/uL Eos # (Auto) (0.0-0.7) K/uL Baso # (Auto) (0.0-0.1) K/uL Nucleated RBC % /100WBC Nucleated RBCs # K/uL Sodium (136-148) mmol/L Potassium (3.5-5.1) mmol/L Chloride (98-107) mmol/L Carbon Dioxide (21.0-32.0) mmol/L BUN (7.0-18.0) mg/dL Creatinine (0.8-1.3) mg/dL Est Cr Clr Drug Dosing mL/min Estimated GFR (MDRD) ml/min Glucose (74-106) mg/dL POC Glucose 261 H (70-99) mg/dL Calcium (8.5-10.1) mg/dL Result Diagrams: 12/28/20 05:55 12/28/20 05:55 Sepsis Event Note - Focused Exam Vital Signs: Vital Signs Temp Pulse Pulse Resp BP BP Pulse Ox 12/28/20 08:39 80 148/83 H 12/28/20 08:10 36.3 C 80 18 148/83 H 94 L 12/28/20 04:00 37.1 C 68 20 145/85 H 95 Orders Last 24hrs: Active Orders 24 hr Category Date Time Status SCD [Sequential Compression Device] [OM.PC] Routine Oth 12/27/20 21:27 Ordered Code Status [Resuscitation Status] Routine Resus Stat 12/27/20 18:27 Ordered Assessment/Plan Comment:: I performed a history and physical exam of the patient and discussed management with resident. I have reviewed the residents note and agree with documented f indings and plan unless otherwise specified in my note.
[2020-12-27] MEDS ORDERED: Potassium Chloride 20 MEQ Tab.ER PO ONE (07:48)
[2020-12-27] MEDS: Insulin Aspart 100 Units/ML 3 ML Pen SUBCUT SCH ×3 (09:37→17:46)
[2020-12-27] MEDS: Metoprolol Succinate 100 MG Tab.ER PO SCH (10:11)
[2020-12-27] MEDS: Venlafaxine 75 MG Cap.ER PO SCH (14:48)
[2020-12-27] MEDS: Acetaminophen 325 MG Tab PO PRN ×2 (17:59→21:53)
[2020-12-28] MEDS: Acetaminophen 325 MG Tab PO PRN (04:12)
[2020-12-28 06:35] LABS: BLOOD UREA NITROGEN,BUN 16 mg/dL (7.0-18.0); CARBON DIOXIDE,CO2 26.8 mmol/L (21.0-32.0); CHLORIDE,CL 98 mmol/L (98-107); GLUCOSE RANDOM 289 mg/dL (74-106); SODIUM,NA 137 mmol/L (136-148)
[2020-12-28] MEDS: Pantoprazole 40 MG in Sodium Chloride 0.9% 10 ML IV SCH (06:38)
[2020-12-28] MEDS ORDERED: Potassium Chloride 20 MEQ Tab.ER PO ONE (07:35)
[2020-12-28] MEDS: Insulin Aspart 100 Units/ML 3 ML Pen SUBCUT SCH (07:46)
[2020-12-28 08:12] VITALS: BP 148/83; PULSE 80
[2020-12-28] MEDS: Metoprolol Succinate 100 MG Tab.ER PO SCH (08:39)
[2020-12-28] MEDS: Venlafaxine 75 MG Cap.ER PO SCH (08:39)
[2020-12-28] MEDS ORDERED: Losartan 50 MG Tab PO SCH (09:00)
--- NOTE | 2020-12-28 10:12 | PCM.DCSUM1 ---
Discharge Summary - Hospital Course Free Text/Narrative:: 55-year-old male presents to the ED via EMS due to a syncopal episode and head injury. Patient [place] which time he began to feel dizzy and lightheaded. Patient also states severe abdominal pain followed by an immediate bout of diarrhea at which time patient suddenly fell to the ground. Patient did hit his head but cannot recall when it happened. Patient is not sure if syncopal episode occurred secondary to dehydration or his immediate diarrheal episode. Patient admitted to medical floor for observation of syncopal episode. Patient's past medical history includes hypertension, obesity. Patient is currently taking metoprolol 200 mg, losartan 100 mg, chlorthalidone 25 mg. Patient states starting chlorthalidone few weeks ago. Patient denies any other syncopal episode, denies history of fever, chills, nausea, vomiting, abdominal pain, headache, chest pain, dizziness, lightheadedness. Patient mated to medical floor on 12-27-20 for observation. ER course laboratory to include white blood cell count 7.1, hemoglobin 15.7, hematocrit 41.5, platelet 127, sodium 134, potassium 3.4, platelets, creatinine 1.6, glucose 408. Patient is Covid positive, but not hypoxic. 96% O2 saturation on room air. Repeat CT impression unchanged small hyperdensity along the anterior aspect of the right frontal lobe, questionably representing a trace amount of subarachnoid hemorrhage. CTA head/neck, normal impression. Dr. Vilchis, neurology was contacted regarding the subarachnoid hemorrhage. Per documentation no neurological intervention necessary at this time. Patient observed overnight. Patient denies nausea, vomiting, diarrhea, abdominal pain, dizziness, lightheadedness, chest pain, shortness of breath. Patient's vitals remained stable, patient tolerated oral diet. Patient's home medication of metoprolol 200 mg, losartan 100 mg were resumed. Patient discharged home on 12-28-20 in stable condition. Patient to resume all current prescribed home medications. Patient currently takes chlorthalidone 25 mg, due to recent history of dizziness, lightheadedness a dose reduction to 12.5 mg daily was recommended on discharge. Patient understands and agrees. Patient to discuss dose adjustment with PCP at next follow-up. - Discharge Data Discharge Date: 12/28/20 Discharge Disposition: Home, Self-Care 01 Condition: Stable - Referral to Home Health Primary Care Physician: Ronald Hneson MD - Discharge Diagnosis/Problem(s) (1) Hypertension SNOMED Code(s): 80717377 ICD Code: I10 - ESSENTIAL (PRIMARY) HYPERTENSION Status: Acute (2) Dehydration SNOMED Code(s): 91352360 ICD Code: E86.0 - DEHYDRATION Status: Acute (3) Hemorrhage, subarachnoid, traumatic SNOMED Code(s): 221490129, 440233609 ICD Code: S06.6X9A - TRAUM SUBRAC HEM W LOC OF UNSP DURATION, INIT Status: Acute (4) Syncope SNOMED Code(s): 808132602 ICD Code: R55 - SYNCOPE AND COLLAPSE Status: Acute - Patient Instructions Diet: Usual Diet as Tolerated Activity: As Tolerated Notify Provider of: Fever, Increased Pain, Swelling and Redness, Nausea and/or Vomiting Other/Special Instructions: Patient to take 12.5 mg, half tablet, of chlorthalidone daily. New prescription given at discharge but if patient has already prescribed 25 mg chlorthalidone tablets they may split tablets in half to achieve dose of 12.5 mg. Patient to discuss dose reduction with primary care physician at follow-up appointment. Medication dosage reduced as patient was stating symptoms of dizziness, lightheadedness, dehydration at admission. Resume all other home medications as prescribed. - Discharge Plan Prescriptions/Med Rec: Chlorthalidone 12.5 mg PO DAILY #10 tab Home Medications: Home Meds Venlafaxine [Effexor XR] 150 mg PO DAILY 07/22/14 [History] Chlorthalidone 12.5 mg PO DAILY #10 tab 12/27/20 [Rx] Losartan Potassium 100 mg PO DAILY 12/27/20 [History] Metoprolol Succinate 200 mg PO DAILY 12/27/20 [History] Semaglutide [Ozempic] 1 mg SQ ASDIRECTED 12/27/20 [History] metFORMIN [Glucophage XR] 1,000 mg PO BIDMEALS 12/27/20 [History] Patient Handouts: Chlorthalidone Oral Tablets, Syncope, [id number] Forms: ED Department Discharge Referrals: Ronald Henson MD [Primary Care Provider] - - Discharge Summary/Plan Comment DC Time >30 min.: Yes Total # of Minutes for Discharge Time: 35 - General Info Date of Service: 12/28/20 Subjective Update: Patient denies fever, chills, nausea, vomiting, headaches, dizziness, chest pain, shortness of breath, abdominal pain, diarrhea. Patient states that he would like to go home as soon as possible this morning. Patient tolerating oral diet. - Review of Systems General: Denies: Fever, Chills Pulmonary: Denies: Shortness of Breath Cardiovascular: Denies: Chest Pain, Palpitations, Dyspnea on Exertion, Edema Gastrointestinal: Denies: Abdominal Pain, Constipation, Decreased Appetite, Diarrhea, Nausea, Vomiting Neurological: Denies: Confusion, Dizziness, Headache Psychiatric: Denies: Confusion - Patient Data Vitals - Most Recent: Last Vital Signs Temp 97.4 F 12/28/20 08:10 Pulse 80 12/28/20 08:39 Resp 18 12/28/20 08:10 BP 148/83 H 12/28/20 08:39 Pulse Ox 94 L 12/28/20 08:10 Orthostatic Blood Pressure [ 117/77 Standing] Orthostatic Blood Pressure [ 121/62 Sitting] Orthostatic Blood Pressure [ 138/82 Supine] Weight - Most Recent: 256 lb 11.2 oz I&O - Last 24 hours: Intake & Output 12/27/20 12/28/20 12/28/20 22:59 06:59 14:59 Intake Total 1280 860 Output Total 980 Balance 1280 -120 Lab Results - Last 24 hrs: Laboratory Results - last 24 hr 12/27/20 12/27/20 12/28/20 Range/Units 11:53 17:15 05:55 WBC 5.04 (4.0-11.0) K/uL RBC 4.80 (4.50-5.90) M/uL Hgb 15.0 (13.0-17.0) g/dL Hct 40.2 (38.0-50.0) % MCV 83.8 (80.0-98.0) fL MCH 31.3 (27.0-32.0) pg MCHC 37.3 H (31.0-37.0) g/dL RDW Std Deviation 38.1 (28.0-62.0) fl RDW Coeff of Ivon 13 (11.0-15.0) % Plt Count 105 L (150-400) K/uL MPV 10.20 (7.40-12.00) fL Neut % (Auto) 59.9 (48.0-80.0) % Lymph % (Auto) 28.6 (16.0-40.0) % Tucker % (Auto) 11.1 (0.0-15.0) % Eos % (Auto) 0.2 (0.0-7.0) % Baso % (Auto) 0.2 (0.0-1.5) % Neut # (Auto) 3.0 (1.4-5.7) K/uL Lymph # (Auto) 1.4 (0.6-2.4) K/uL Tucker # (Auto) 0.6 (0.0-0.8) K/uL Eos # (Auto) 0.0 (0.0-0.7) K/uL Baso # (Auto) 0.0 (0.0-0.1) K/uL Nucleated RBC % 0.0 /100WBC Nucleated RBCs # 0 K/uL Sodium (136-148) mmol/L Potassium (3.5-5.1) mmol/L Chloride (98-107) mmol/L Carbon Dioxide (21.0-32.0) mmol/L BUN (7.0-18.0) mg/dL Creatinine (0.8-1.3) mg/dL Est Cr Clr Drug Dosing mL/min Estimated GFR (MDRD) ml/min Glucose (74-106) mg/dL POC Glucose 286 H 275 H (70-99) mg/dL Calcium (8.5-10.1) mg/dL 12/28/20 12/28/20 Range/Units 05:55 06:37 WBC (4.0-11.0) K/uL RBC (4.50-5.90) M/uL Hgb (13.0-17.0) g/dL Hct (38.0-50.0) % MCV (80.0-98.0) fL MCH (27.0-32.0) pg MCHC (31.0-37.0) g/dL RDW Std Deviation (28.0-62.0) fl RDW Coeff of Ivon (11.0-15.0) % Plt Count (150-400) K/uL MPV (7.40-12.00) fL Neut % (Auto) (48.0-80.0) % Lymph % (Auto) (16.0-40.0) % Tucker % (Auto) (0.0-15.0) % Eos % (Auto) (0.0-7.0) % Baso % (Auto) (0.0-1.5) % Neut # (Auto) (1.4-5.7) K/uL Lymph # (Auto) (0.6-2.4) K/uL Tucker # (Auto) (0.0-0.8) K/uL Eos # (Auto) (0.0-0.7) K/uL Baso # (Auto) (0.0-0.1) K/uL Nucleated RBC % /100WBC Nucleated RBCs # K/uL Sodium 137 (136-148) mmol/L Potassium 3.0 L (3.5-5.1) mmol/L Chloride 98 (98-107) mmol/L Carbon Dioxide 26.8 (21.0-32.0) mmol/L BUN 16 (7.0-18.0) mg/dL Creatinine 0.9 (0.8-1.3) mg/dL Est Cr Clr Drug Dosing 96.45 mL/min Estimated GFR (MDRD) > 60.0 ml/min Glucose 289 H (74-106) mg/dL POC Glucose 261 H (70-99) mg/dL Calcium 7.5 L (8.5-10.1) mg/dL Med Orders - Current: Current Medications Acetaminophen (Acetaminophen 325 Mg Tab) 650 mg PO Q4H PRN PRN Reason: Pain Last Admin: 12/28/20 04:12 Dose: 650 mg Documented by: Albuterol/Ipratropium (Albuterol/Ipratropium 3.0-0.5 Mg/3 Ml Neb Soln) 3 ml NEB Q4HRRT PRN PRN Reason: Shortness of Breath Dextrose/Water (50% Dextrose In Water 50 Ml Syringe) 50 ml IVPUSH ASDIRECTED PRN PRN Reason: Hypoglycemia Glucagon (Glucagon,Human Recombinant 1 Mg Vial) 1 mg IM ASDIRECTED PRN PRN Reason: Hypoglycemia Pantoprazole Sodium 40 mg/ (Sodium Chloride) 10 mls @ 300 mls/hr IV Q24H JONATHAN Last Admin: 12/28/20 06:38 Dose: 300 mls/hr Documented by: Insulin Aspart (Insulin Aspart 100 Units/Ml 3 Ml Pen) 0 unit SUBCUT TIDAC [facility]; Protocol Last Admin: 12/28/20 07:46 Dose: 3 unit Documented by: Losartan Potassium (Losartan 50 Mg Tab) 100 mg PO DAILY [facility] Last Admin: 12/28/20 08:39 Dose: 100 mg Documented by: Metoprolol Succinate (Metoprolol Succinate 100 Mg Tab.Er) 200 mg PO DAILY [facility] Last Admin: 12/28/20 08:39 Dose: 200 mg Documented by: Ondansetron HCl (Ondansetron 4 Mg/2 Ml Sdv) 4 mg IVPUSH Q4H PRN PRN Reason: Nausea/Vomiting Venlafaxine HCl (Venlafaxine 75 Mg Cap.Er) 150 mg PO DAILY [facility] Last Admin: 12/28/20 08:39 Dose: 150 mg Documented by: Discontinued Medications Diphtheria/Tetanus/Acell Pertussis (Diphtheria,Pertussis(Acell),Tetanus Vaccine 0.5 Ml Syringe) 0.5 ml IM .ONCE ONE Stop: 12/26/20 21:52 Last Admin: 12/26/20 22:06 Dose: 0.5 ml Documented by: Enoxaparin Sodium (Enoxaparin 40 Mg/0.4 Ml Syringe) 40 mg SUBCUT Q24H [facility] Last Admin: 12/27/20 07:56 Dose: Not Given Documented by: Sodium Chloride (Normal Saline) 1,000 mls @ 999 mls/hr IV BOLUS ONE Stop: 12/26/20 20:07 Last Admin: 12/26/20 19:19 Dose: 999 mls/hr Documented by: Sodium Chloride (Normal Saline) 1,000 mls @ 999 mls/hr IV STAT ONE Stop: 12/26/20 23:25 Last Admin: 12/26/20 22:28 Dose: 999 mls/hr Documented by: Sodium Chloride (Normal Saline) 1,000 mls @ 999 mls/hr IV .Bolus ONE Stop: 12/27/20 00:22 Last Admin: 12/26/20 23:49 Dose: 999 mls/hr Documented by: Lactated Ringer's (Ringers, Lactated) 1,000 mls @ 100 mls/hr IV ASDIRECTED [facility] Last Admin: 12/27/20 07:53 Dose: 100 mls/hr Documented by: Iopamidol (Iopamidol 755 Mg/Ml 500 Ml Multipack Bottle) 100 ml IVPUSH ONETIME STA Stop: 12/26/20 21:51 Last Admin: 12/26/20 21:51 Dose: 100 ml Documented by: Potassium Chloride (Potassium Chloride 20 Meq Tab.Er) 40 meq PO ONETIME ONE Stop: 12/27/20 07:49 Last Admin: 12/27/20 10:12 Dose: 40 meq Documented by: Potassium Chloride (Potassium Chloride 20 Meq Tab.Er) 40 meq PO ONETIME ONE Stop: 12/28/20 07:36 Last Admin: 12/28/20 08:40 Dose: 40 meq Documented by: - Exam General: Reports: Alert, Oriented Lungs: Reports: Clear to Auscultation, Normal Respiratory Effort Cardiovascular: Reports: Regular Rate, Regular Rhythm GI/Abdominal Exam: Soft, Non-Tender
== END 2020-12-28 10:20 | disposition home or self-care (01) ==
LOC: MW.ED 18:41 → MW.MS 12-27 03:03
PROVIDERS: ADMIT Student in an Organized Health Care Education/Training Program; ATTEND Student in an Organized Health Care Education/Training Program
DX: R55 Syncope and collapse (principal); I10 Essential (primary) hypertension; E11.9 Type 2 diabetes mellitus without complications; E66.9 Obesity, unspecified; U07.1 COVID-19; S06.6X9A Traumatic subarachnoid hemorrhage with loss of consciousness of unspecified duration, initial encounter; E86.0 Dehydration; Z98.890 Other specified postprocedural states; Z79.899 Other long term (current) drug therapy
CPT/HCPCS: 36415; 70450; 70496; 70498; 71045; 80048; 80053; 82947; 84484; 85025; 87635; 90471; 90715; 93005; 99285; A9270; C9113; J1815; J7030; J7120; Q9967; 96374; 96376; G0378; U0002

== ENCOUNTER 2021-03-01 07:17 | Observation (INO) | payer OTHER ==
[2021-03-01] MEDS ORDERED: Sodium Chloride 0.9% 10 ML Syringe FLUSH PRN (07:27)
[2021-03-01] MEDS ORDERED: Sodium Chloride 0.9% 20 ML SDV IV PRN (07:27)
[2021-03-01] MEDS ORDERED: Sodium Chloride 0.9% 2.5 ML Syringe FLUSH PRN (07:27)
--- NOTE | 2021-03-01 07:37 | EDM.PDOC ---
ED HPI GENERAL MEDICAL PROBLEM - General Chief Complaint: Neuro Symptoms/Deficits Stated Complaint: RINGING IN EARS LAST NIGHT AND SLURRING WORDS Time Seen by Provider: 03/01/21 07:27 - History of Present Illness INITIAL COMMENTS - FREE TEXT/NARRATIVE: HISTORY AND PHYSICAL: History of present illness: This is a 55-year-old gentleman with history significant for hypertension and diabetes who presents ER today secondary to intermittent episodes of slurred speech that started on February 28 at approximately 4 AM. 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 Patient reports that yesterday he would have episodes where he would talk and then have a short episode of maybe one symptoms where his speech would be slurred and that he would go back to normal. Patient reports that this happened to him approximately 3-4 times in the last 24 hours. Patient reports that the symptoms were preceded by some ringing in his left ear that occurred yesterday also at approximately 4 AM. Patient denies any other symptomatology. Patient denies any recent fevers, shakes, chills, nausea, vomiting, diarrhea, dysuria, frequency, urgency, chest pain, shortness of breath, abdominal pain. Patient denies any weakness to his upper or lower extremities. Patient denies any vertigo or dizziness. Patient denies any difficulty with word finding. Patient denies any gait instability. Patient denies any double vision or blurred vision. Patient denies any new hearing loss and reports he has baseline decreased hearing out of his left ear. Patient reports that he was diagnosed with Covid approximately 6 weeks ago and was admitted overnight here in the hospital secondary to a fall but did not have any respiratory issues. 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 Review of systems: As per history of present illness and below otherwise all systems reviewed and negative. Past medical history: As per history of present illness and as reviewed below otherwise noncontributory. Surgical history: As per history of present illness and as reviewed below otherwise noncontributory. Social history: No reported history of drug abuse. Family history: As per history of present illness and as reviewed below otherwise noncontributory. Physical exam: This patient was seen and evaluated during the 2019 SARS-CoV-2 novel coronavirus pandemic period. Community viral transmission is ongoing at time of this encounter and the emergency department is operating under pandemic response procedures. Constitutional: Patient is oriented to person, place, and time. Appears well- developed and well-nourished. No distress. HEENT: Moist mucous membranes Head: Normocephalic and atraumatic Eyes: Right eye exhibits no discharge. Left eye exhibits no discharge. No scleral icterus Neck: Normal range of motion. No tracheal deviation present. Cardiovascular: Normal rate and regular rhythm. Pulmonary: Effort normal, no respiratory distress. Abdominal: No distention Musculoskeletal: Normal range of motion Neuro: A&Ox3. Cranial nerves II-XII grossly intact, 5/5 strength to bilateral upper and lower extremities, sensation intact to bilateral upper and lower extremities, no nystagmus, PERRLA, EOMI, normal speech, proprioception intact to bilateral lower extremities, normal finger to nose test, gait normal Skin: Myra, warm and dry. Psychiatric: Normal mood and affect. Behavior is normal. Judgment and thought content normal. Nursing note and vital signs have been reviewed 1a) Level of consciousness: 0=alert; 1=not alert but arousable by minor stimulation; 2=not alert: requires repeated stimulation to attend or is obtunded and requires strong or painful stimulation to make movements; 3=responds only with reflex motor or autonomic effects or totally unresponsive, flaccid and areflexic SCORE 0 1b) LOC questions ("what month is it?", "how old are you?"): 0=answers both correctly; 1=answers one correctly; 2=answers neither correctly SCORE 0 1c) LOC commands (command patient to "open and close your eyes. Informatics Consultant and release your hand.): 0=performs both correctly; 1=performs one correctly; 2=performs neither correctly SCORE 0 2) Best gaze ("follow my finger"): 0=normal; 1=partial gaze palsy; 2=forced deviation or total gaze paresis SCORE 0 3) Visual yang (use confrontation, finger counting, or visual threat. confront upper/lower quadrants of visual field): 0=no visual loss; 1=partial hemianopsia; 2=complete hemianopsia; 3=bilateral hemianopsia SCORE 0 4) Facial palsy (by words or pantomime, encourage patient to: "Show me your teeth. Raise your eyebrows. Close your eyes."): 0=normal symmetrical movement; 1=minor paralysis (flattened nasolabial fold, asymmetry on smiling); 2=partial paralysis (lower face); 3=complete paralysis SCORE 0 5) Arm motor (alternately position patient's arms. extend each arm with palms down (90 degrees if sitting, 45 degrees if supine) - test each arm in turn and start with nonparetic arm first): 0=no drift; 1=drift (arm falls before 10 seconds); 2=some effort vs. gravity; 3=no effort vs. gravity; 4=no movement; UN (untestable)=amputation or joint fusion SCORE 0 6) Leg motor (alternately position patient's legs. extend each leg (30 degrees, always while supine) - test nonparetic leg first): 0=no drift; 1=drift (leg falls before 5 seconds); 2=some effort vs. gravity; 3= no effort vs. gravity; 4=no movement; UN=amputation or joint fusion SCORE 0 7) Limb ataxia (ask patient [eyes open] to: "touch your finger to your nose. touch your heel to your suarez"): 0=absent; 1=present in one limb; 2=present in two or more limbs; UN=amputation or joint fusion SCORE 0 8) Sensory (test as many body parts as possible (arms and not hands, legs, trunk, face) for sensation using pinprick or noxious stimuli (in the obtunded or aphasic patient)): 0=normal; 1=mild to moderate sensory loss; 2=severe to total sensory loss SCORE 0 9) Best language (using pictures and a sentence list, ask patient to "describe what you see in this picture. Name the items in this picture. Read these sentences"): 0=no aphasia, 1=mild to moderate aphasia; 2=severe aphasia; 3=mute, global aphasia SCORE 0 10) Dysarthria (using a simple word list, ask patient to: "read these words" or "repeat these words"): 0=normal articulation; 1=mild to moderate dysarthria; 2=severe dysarthria; UN=intubated or other physical barrier SCORE 0 11) Extinction and inattention (sufficient information to determine these scores may have been obtained during the prior testing): 0=no abnormality; 1=visual, tactile, auditory, spatial or personal inattention; 2=profound naomy-inattention or extinction to more than one modality SCORE 0 TOTAL NIHSS Score: 0 Diagnostics: [] Therapeutics: [] Assessment and plan: This is a 55-year-old gentleman with a history significant for hypertension, diabetes, recent diagnosis of Covid approximately 6 weeks ago who presents to the ER today secondary to concern for strokelike symptoms that have been intermittent for the last 27 hours. Patient reports that the last episode of slurring in his speech occurred approximately 3 and half hours ago. Patient reports that his symptoms began when he was talking and then had approximate one symptoms of slurring of speech and then resolves. Patient reports that this occurred approximately 3 times in the last 24 hours. Patient denies any other neurological deficits. Patient denies any other weakness or loss of sensation. Patient is currently at baseline without slurring in his speech. Patient's presentation appears to be extremely atypical of an acute stroke given that its been intermittent and resolves and lasts for approximately a 2 to 3 seconds and then resolves. A stroke code has been called the patient will have a stat CT scan as well as labs to further evaluate the symptoms. Patient's NIH score at this time is zero. Patient is not a candidate for thrombolytic therapy secondary to no symptoms and NIH score of zero. Upon reevaluation, the patient also reported that yesterday he had episodes of staggering while he was walking in today when he stood up he felt like he was unable to control his right lower extremity for approximately 5 to 10 seconds. Patient reports that his back to normal at this time. CT scan of his head is unremarkable without any evidence of acute stroke no new pathology. Definitive disposition and diagnosis as appropriate pending reevaluation and review of above. - Related Data Allergies Allergy/AdvReac Type Severity Reaction Status Date / Time No Known Allergies Allergy Verified 03/01/21 07:29 Home Meds: Home Meds Venlafaxine [Effexor XR] 150 mg PO DAILY 07/22/14 [History] Chlorthalidone 12.5 mg PO DAILY #10 tab 12/27/20 [Rx] Losartan Potassium 100 mg PO DAILY 12/27/20 [History] Metoprolol Succinate 200 mg PO DAILY 12/27/20 [History] Semaglutide [Ozempic] 1 mg SQ ASDIRECTED 12/27/20 [History] metFORMIN [Glucophage XR] 1,000 mg PO BIDMEALS 12/27/20 [History] Past Medical History HEENT History: Reports: None Other HEENT History: Left ear hearing deficit Cardiovascular History: Reports: Hypertension Respiratory History: Reports: None Gastrointestinal History: Reports: None Genitourinary History: Reports: None Musculoskeletal History: Reports: None Neurological History: Reports: None Psychiatric History: Reports: Anxiety, Depression Endocrine/Metabolic History: Reports: Diabetes, Type II, Obesity/BMI 30+ Hematologic History: Reports: None Immunologic History: Reports: None Oncologic (Cancer) History: Reports: None Dermatologic History: Reports: None - Infectious Disease History Infectious Disease History: Reports: Chicken Pox - Past Surgical History Head Surgeries/Procedures: Reports: None Cardiovascular Surgical History: Reports: Cardiac Ablation Social & Family History - Caffeine Use Caffeine Use: Reports: Coffee ED ROS GENERAL - Review of Systems Review Of Systems: See Below ED EXAM, GENERAL - Physical Exam Exam: See Below #1 Interpretation EKG Date: 03/01/21 Time: 07:42 EKG Interpretation Comments: EKG: As interpreted by ER physician: Saroj: Nonspecific ST-T wave abnormalities Normal axis No evidence of ST elevation NC Normal sinus rhythm heart rate of 64 Course - Vital Signs Last Recorded V/S: Last Vital Signs Temp 97.5 F 03/01/21 07:28 Pulse 66 03/01/21 08:12 Resp 17 03/01/21 08:12 BP 163/86 H 03/01/21 08:12 Pulse Ox 96 03/01/21 08:12 - Orders/Labs/Meds Orders: Active Orders 24 hr Category Date Time Status Assess Neurological Status [RC] ASDIRECTED Care 03/01/21 07:27 Active Blood Glucose Check, Bedside [RC] STAT Care 03/01/21 07:28 Active Cardiac Monitoring [RC] . DIRECTED Care 03/01/21 07:27 Active Height and Weight [RC] UPON Care 03/01/21 07:27 Active Initiate Acute Stroke Protocol [RC] STAT Care 03/01/21 07:27 Active NIH Stroke Scale [RC] ASDIRECTED Care 03/01/21 07:27 Active Oxygen Therapy [RC] ASDIRECTED Care 03/01/21 07:27 Active Stroke Education, General [RC] Click to Edit Care 03/01/21 07:27 Active Up With Assistance [RC] ASDIRECTED Care 03/01/21 07:27 Active Vital Signs [RC] Q15M Care 03/01/21 07:27 Active DRUG SCREEN, URINE [URCHEM] Stat Lab 03/01/21 07:28 Ordered UA W/MICROSCOPIC [URIN] Stat Lab 03/01/21 07:28 Ordered Sodium Chloride 0.9% [Normal Saline] Med 03/01/21 07:27 Active 10 ml IV ASDIRECTED PRN Sodium Chloride 0.9% [Saline Flush] Med 03/01/21 07:27 Active 10 ml FLUSH ASDIRECTED PRN Sodium Chloride 0.9% [Saline Flush] Med 03/01/21 07:27 Active 2.5 ml FLUSH ASDIRECTED PRN Peripheral IV Insertion Adult [OM.PC] Stat Oth 03/01/21 07:27 Ordered Medication Orders Sodium Chloride (Sodium Chloride 0.9% 10 Ml Syringe) 10 ml FLUSH ASDIRECTED PRN PRN Reason: Keep Vein Open Last Admin: 03/01/21 08:05 Dose: 10 ml Documented by: MILENA Sodium Chloride (Sodium Chloride 0.9% 2.5 Ml Syringe) 2.5 ml FLUSH ASDIRECTED PRN PRN Reason: Keep Vein Open Last Admin: 03/01/21 08:05 Dose: 2.5 ml Documented by: MILENA Sodium Chloride (Sodium Chloride 0.9% 20 Ml Sdv) 10 ml IV ASDIRECTED PRN PRN Reason: IV Use Last Admin: 03/01/21 08:05 Dose: 10 ml Documented by: MILENA Labs: Laboratory Tests 03/01/21 03/01/21 03/01/21 Range/Units 07:20 07:20 07:20 WBC 11.94 H (4.0-11.0) K/uL RBC 5.44 (4.50-5.90) M/uL Hgb 15.6 (13.0-17.0) g/dL Hct 46.6 (38.0-50.0) % MCV 85.7 (80.0-98.0) fL MCH 28.7 (27.0-32.0) pg MCHC 33.3 (31.0-37.0) g/dL RDW Std Deviation 39.5 (28.0-62.0) fl RDW Coeff of Ivon 13 (11.0-15.0) % Plt Count 207 (150-400) K/uL MPV 10.00 (7.40-12.00) fL Neut % (Auto) 60.4 (48.0-80.0) % Lymph % (Auto) 29.8 (16.0-40.0) % [place] % (Auto) 8.2 (0.0-15.0) % Eos % (Auto) 1.3 (0.0-7.0) % Baso % (Auto) 0.3 (0.0-1.5) % Neut # (Auto) 7.2 H (1.4-5.7) K/uL Lymph # (Auto) 3.6 H (0.6-2.4) K/uL [place] # (Auto) 1.0 H (0.0-0.8) K/uL Eos # (Auto) 0.2 (0.0-0.7) K/uL Baso # (Auto) 0.0 (0.0-0.1) K/uL Nucleated RBC % 0.0 /100WBC Nucleated RBCs # 0 K/uL INR 0.90 APTT 24.7 (18.6-31.3) SEC Sodium 136 (136-148) mmol/L Potassium 4.0 (3.5-5.1) mmol/L Chloride 99 (98-107) mmol/L Carbon Dioxide 22.9 (21.0-32.0) mmol/L BUN 29 H (7.0-18.0) mg/dL Creatinine 0.8 (0.8-1.3) mg/dL Est Cr Clr Drug Dosing 108.51 mL/min Estimated GFR (MDRD) > 60.0 ml/min Glucose 283 H (74-106) mg/dL Calcium 8.5 (8.5-10.1) mg/dL Total Bilirubin 0.8 (0.2-1.0) mg/dL AST 51 H (15-37) IU/L ALT 64 H (14-63) IU/L Alkaline Phosphatase 165 H (46-116) U/L Troponin I < 0.050 (0.000-0.056) ng/mL Total Protein 7.8 (6.4-8.2) g/dL Albumin 3.6 (3.4-5.0) g/dL Globulin 4.2 H (2.6-4.0) g/dL Albumin/Globulin Ratio 0.9 (0.9-1.6) TSH, Ultra Sensitive 3.24 (0.36-3.74) uIU/mL Ethyl Alcohol <3 mg/dL Meds: Medications Generic Name Dose Route Start Last Admin Trade Name Freq PRN Reason Stop Dose Admin Sodium Chloride 10 ml 03/01/21 07:27 03/01/21 08:05 Sodium Chloride 0.9% 10 Ml Syringe FLUSH 10 ml ASDIRECTED PRN Administration Keep Vein Open Sodium Chloride 2.5 ml 03/01/21 07:27 03/01/21 08:05 Sodium Chloride 0.9% 2.5 Ml Syringe FLUSH 2.5 ml ASDIRECTED PRN Administration Keep Vein Open Sodium Chloride 10 ml 03/01/21 07:27 03/01/21 08:05 Sodium Chloride 0.9% 20 Ml Sdv IV 10 ml ASDIRECTED PRN Administration IV Use Departure - Departure Time of Disposition: 08:58 Disposition: Refer to Observation Condition: Good Clinical Impression: Slurred speech, TIA (transient ischemic attack), Transient right leg weakness - Discharge Information Referrals: Ronald Henson MD [Primary Care Provider] - Forms: ED Department Discharge Sepsis Event Note (ED) - Evaluation Sepsis Screening Result: No Definite Risk - Focused Exam Vital Signs: Vital Signs Temp Pulse Resp BP Pulse Ox 03/01/21 08:12 66 17 163/86 H 96 03/01/21 07:53 63 17 173/93 H 95 03/01/21 07:28 97.5 F 67 17 197/99 H 95 03/01/21 07:27 70 17 186/84 H 95 - My Orders Last 24 Hours: My Active Orders 03/01/21 07:27 Assess Neurological Status [RC] ASDIRECTED Cardiac Monitoring [RC] . DIRECTED Height and Weight [RC] UPON Initiate Acute Stroke Protocol [RC] STAT NIH Stroke Scale [RC] ASDIRECTED Oxygen Therapy [RC] ASDIRECTED Stroke Education, General [RC] Click to Edit Up With Assistance [RC] ASDIRECTED Vital Signs [RC] Q15M Sodium Chloride 0.9% [Normal Saline] 10 ml IV ASDIRECTED PRN Sodium Chloride 0.9% [Saline Flush] 10 ml FLUSH ASDIRECTED PRN Sodium Chloride 0.9% [Saline Flush] 2.5 ml FLUSH ASDIRECTED PRN Peripheral IV Insertion Adult [OM.PC] Stat 03/01/21 07:28 Blood Glucose Check, Bedside [RC] STAT DRUG SCREEN, URINE [URCHEM] Stat UA W/MICROSCOPIC [URIN] Stat - Assessment/Plan Last 24 Hours: My Active Orders 03/01/21 07:27 Assess Neurological Status [RC] ASDIRECTED Cardiac Monitoring [RC] . DIRECTED Height and Weight [RC] UPON Initiate Acute Stroke Protocol [RC] STAT NIH Stroke Scale [RC] ASDIRECTED Oxygen Therapy [RC] ASDIRECTED Stroke Education, General [RC] Click to Edit Up With Assistance [RC] ASDIRECTED Vital Signs [RC] Q15M Sodium Chloride 0.9% [Normal Saline] 10 ml IV ASDIRECTED PRN Sodium Chloride 0.9% [Saline Flush] 10 ml FLUSH ASDIRECTED PRN Sodium Chloride 0.9% [Saline Flush] 2.5 ml FLUSH ASDIRECTED PRN Peripheral IV Insertion Adult [OM.PC] Stat 03/01/21 07:28 Blood Glucose Check, Bedside [RC] STAT DRUG SCREEN, URINE [URCHEM] Stat UA W/MICROSCOPIC [URIN] Stat
--- NOTE | 2021-03-01 08:00 | CT ---
DATE: 03/01/2021. CLINICAL HISTORY: 03/01/2021. TECHNIQUE: Standard helical CT image acquisition of the brain was performed. COMPARISON: Acute neurological deficit. FINDINGS: There is no acute intracranial hemorrhage. No extra-axial collection, mass effect, or midline shift. Patchy hypoattenuation within the white matter of both hemispheres likely reflects sequela of chronic small vessel ischemia. Ventricles are normal in size and morphology for patient age. The calvarium is unremarkable. The orbits are unremarkable. The paranasal sinuses are unremarkable. The mastoid air cells are unremarkable. The soft tissues are unremarkable. IMPRESSION: 1. No CT evidence of acute intracranial abnormality. 2. Findings most consistent with sequela of chronic small vessel ischemia. Please note that all CT scans at this facility use dose modulation, iterative reconstruction, and/or weight-based dosing when appropriate to reduce radiation dose to as low as reasonably achievable. Dictated by Arias Wu MD @ 03/01/2021 6:46:46 PM (Electronically Signed)
--- NOTE | 2021-03-01 08:26 | CR ---
Indication: Stroke Technique: Portable chest Comparison: Chest x-ray 12/26/2020 no report Findings: Normal cardiac mediastinal silhouette. Lungs are clear of acute airspace or interstitial process. Diffuse nodular densities likely reflecting granulomas. No effusion or pneumothorax. Dictated by Aicha Prabhakar MD @ 03/01/2021 8:23:25 AM (Electronically Signed)
[2021-03-01 08:29] LABS: BLOOD UREA NITROGEN,BUN 29 mg/dL (7.0-18.0); CARBON DIOXIDE,CO2 22.9 mmol/L (21.0-32.0); CHLORIDE,CL 99 mmol/L (98-107); GLUCOSE RANDOM 283 mg/dL (74-106)
[2021-03-01 08:31] LABS: SODIUM,NA 136 mmol/L (136-148)
[2021-03-01] MEDS ORDERED: 50% Dextrose in Water 50 ML Syringe IVPUSH PRN (12:54)
[2021-03-01] MEDS ORDERED: Glucagon,Human Recombinant 1 MG Vial IM PRN (12:54)
[2021-03-01] MEDS ORDERED: Venlafaxine 75 MG Cap.ER PO SCH (13:00)
--- NOTE | 2021-03-01 15:14 | PCM.HP.2 ---
H&P History of Present Illness - General Date of Service: 03/01/21 Admit Problem/Dx: Admission Diagnosis/Problem Admission Diagnosis/Problem Slurred speech. - History of Present Illness Initial Comments - Free Text/Narative: Tony Carmichael is a 55 y/o M with history significant for hypertension, obesity, RADHA and diabetes who presents ER this morning with two episodes of intermittent slurred speech. The first episode was last evening at about 5 pm. He noticed that his speech sounded gibberish. 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 This again lasted only a few seconds. He was able to finish his overnight caregiver at work and bring himself straight to the ED this morning. In the ED he was noted to have an elevated SBP in the 180's. He denies having any weakness to his upper or lower extremities. Patient denies any vertigo or dizziness. Patient denies any difficulty with w ord finding. Patient denies any gait instability. Patient denies any double vision or blurred vision. Patient denies any new hearing loss and reports he has baseline decreased hearing out of his left ear. He has no prior episodes of slurred speech, TIA or stroke. He was admitted to the hospital overnight after he passed our and fell due to dehydration from COVID 19 infection. He did not develop any significant respiratory symptoms. - Related Data Allergies/Adverse Reactions: Allergies Allergy/AdvReac Type Severity Reaction Status Date / Time No Known Allergies Allergy Verified 03/01/21 07:29 Home Medications: Home Meds Venlafaxine [Effexor XR] 150 mg PO DAILY 07/22/14 [History] Chlorthalidone 12.5 mg PO DAILY #10 tab 12/27/20 [Rx] Losartan Potassium 100 mg PO DAILY 12/27/20 [History] Metoprolol Succinate 200 mg PO DAILY 12/27/20 [History] Semaglutide [Ozempic] 1 mg SQ WEEKLY 12/27/20 [History] metFORMIN [Glucophage XR] 2,000 mg PO DAILY 12/27/20 [History] Erythromycin Base [Erythromycin] 5 mg TOP TID 03/01/21 [History] amLODIPine [Norvasc] 10 mg PO DAILY 03/01/21 [History] Past Medical History HEENT History: Reports: None Other HEENT History: Left ear hearing deficit Cardiovascular History: Reports: Hypertension Respiratory History: Reports: None Gastrointestinal History: Reports: None Genitourinary History: Reports: None Musculoskeletal History: Reports: None Neurological History: Reports: None Psychiatric History: Reports: Anxiety, Depression Endocrine/Metabolic History: Reports: Diabetes, Type II, Obesity/BMI 30+ Hematologic History: Reports: None Immunologic History: Reports: None Oncologic (Cancer) History: Reports: None Dermatologic History: Reports: None - Infectious Disease History Infectious Disease History: Reports: Chicken Pox, Novel Coronavirus - Past Surgical History Head Surgeries/Procedures: Reports: None HEENT Surgical History: Reports: None Cardiovascular Surgical History: Reports: Cardiac Ablation Respiratory Surgical History: Reports: None GI Surgical History: Reports: None Male Surgical History: Reports: None Endocrine Surgical History: Reports: None Neurological Surgical History: Reports: None Musculoskeletal Surgical History: Reports: None Dermatological Surgical History: Reports: None Social & Family History - Family History Family Medical History: No Pertinent Family History - Tobacco Use Tobacco Use Status *Q: Current Every Day Tobacco User Years of Tobacco use: 20 Packs/Tins Daily: 0.5 - Caffeine Use Caffeine Use: Reports: Coffee - Recreational Drug Use Recreational Drug Use: No H&P Review of Systems - Review of Systems: Review Of Systems: Comprehensive ROS is negative, except as noted in HPI. Exam - Exam Exam: See Below - Vital Signs Vital Signs: Last Vital Signs Temp 97.1 F 03/01/21 12:00 Pulse 63 03/01/21 12:00 Resp 18 03/01/21 12:00 BP 159/90 H 03/01/21 12:00 Pulse Ox 96 03/01/21 12:00 Weight: 264 lb 12.8 oz - Exam Physical Exam Comments:: General: Obese middle aged male. In no distress HEENT: NC, AT, PERRLA, EOMI. Short thick and supple neck. CVS: S1S2 appreciated. RRR lungs: clear with no rales or wheezes pa: soft,non tender, bowel sounds present. Ext: no clubbing or cyanosis. 2+ peripheral edema Neuro: strength is 5/5 bilaterally. sensation is intact. Speech is normal. Gait is normal. psych: stable mood and affect. - Patient Data Lab Results Last 24 hrs: Laboratory Results - last 24 hr 03/01/21 03/01/21 03/01/21 Range/Units 07:20 07:20 07:20 WBC 11.94 H (4.0-11.0) K/uL RBC 5.44 (4.50-5.90) M/uL Hgb 15.6 (13.0-17.0) g/dL Hct 46.6 (38.0-50.0) % MCV 85.7 (80.0-98.0) fL MCH 28.7 (27.0-32.0) pg MCHC 33.3 (31.0-37.0) g/dL RDW Std Deviation 39.5 (28.0-62.0) fl RDW Coeff of Ivon 13 (11.0-15.0) % Plt Count 207 (150-400) K/uL MPV 10.00 (7.40-12.00) fL Neut % (Auto) 60.4 (48.0-80.0) % Lymph % (Auto) 29.8 (16.0-40.0) % [place] % (Auto) 8.2 (0.0-15.0) % Eos % (Auto) 1.3 (0.0-7.0) % Baso % (Auto) 0.3 (0.0-1.5) % Neut # (Auto) 7.2 H (1.4-5.7) K/uL Lymph # (Auto) 3.6 H (0.6-2.4) K/uL [place] # (Auto) 1.0 H (0.0-0.8) K/uL Eos # (Auto) 0.2 (0.0-0.7) K/uL Baso # (Auto) 0.0 (0.0-0.1) K/uL Nucleated RBC % 0.0 /100WBC Nucleated RBCs # 0 K/uL INR 0.90 APTT 24.7 (18.6-31.3) SEC Sodium 136 (136-148) mmol/L Potassium 4.0 (3.5-5.1) mmol/L Chloride 99 (98-107) mmol/L Carbon Dioxide 22.9 (21.0-32.0) mmol/L BUN 29 H (7.0-18.0) mg/dL Creatinine 0.8 (0.8-1.3) mg/dL Est Cr Clr Drug Dosing 108.51 mL/min Estimated GFR (MDRD) > 60.0 ml/min Glucose 283 H (74-106) mg/dL POC Glucose (70-99) mg/dL Calcium 8.5 (8.5-10.1) mg/dL Total Bilirubin 0.8 (0.2-1.0) mg/dL AST 51 H (15-37) IU/L ALT 64 H (14-63) IU/L Alkaline Phosphatase 165 H (46-116) U/L Troponin I < 0.050 (0.000-0.056) ng/mL Total Protein 7.8 (6.4-8.2) g/dL Albumin 3.6 (3.4-5.0) g/dL Globulin 4.2 H (2.6-4.0) g/dL Albumin/Globulin Ratio 0.9 (0.9-1.6) TSH, Ultra Sensitive 3.24 (0.36-3.74) uIU/mL Ethyl Alcohol <3 mg/dL 03/01/21 Range/Units 12:40 WBC (4.0-11.0) K/uL RBC (4.50-5.90) M/uL Hgb (13.0-17.0) g/dL Hct (38.0-50.0) % MCV (80.0-98.0) fL MCH (27.0-32.0) pg MCHC (31.0-37.0) g/dL RDW Std Deviation (28.0-62.0) fl RDW Coeff of Ivon (11.0-15.0) % Plt Count (150-400) K/uL MPV (7.40-12.00) fL Neut % (Auto) (48.0-80.0) % Lymph % (Auto) (16.0-40.0) % [place] % (Auto) (0.0-15.0) % Eos % (Auto) (0.0-7.0) % Baso % (Auto) (0.0-1.5) % Neut # (Auto) (1.4-5.7) K/uL Lymph # (Auto) (0.6-2.4) K/uL [place] # (Auto) (0.0-0.8) K/uL Eos # (Auto) (0.0-0.7) K/uL Baso # (Auto) (0.0-0.1) K/uL Nucleated RBC % /100WBC Nucleated RBCs # K/uL INR APTT (18.6-31.3) SEC Sodium (136-148) mmol/L Potassium (3.5-5.1) mmol/L Chloride (98-107) mmol/L Carbon Dioxide (21.0-32.0) mmol/L BUN (7.0-18.0) mg/dL Creatinine (0.8-1.3) mg/dL Est Cr Clr Drug Dosing mL/min Estimated GFR (MDRD) ml/min Glucose (74-106) mg/dL POC Glucose 236 H (70-99) mg/dL Calcium (8.5-10.1) mg/dL Total Bilirubin (0.2-1.0) mg/dL AST (15-37) IU/L ALT (14-63) IU/L Alkaline Phosphatase (46-116) U/L Troponin I (0.000-0.056) ng/mL Total Protein (6.4-8.2) g/dL Albumin (3.4-5.0) g/dL Globulin (2.6-4.0) g/dL Albumin/Globulin Ratio (0.9-1.6) TSH, Ultra Sensitive (0.36-3.74) uIU/mL Ethyl Alcohol mg/dL Result Diagrams: 03/01/21 07:20 03/01/21 07:20 Sepsis Event Note - Evaluation Sepsis Screening Result: No Definite Risk - Focused Exam Vital Signs: Vital Signs Temp Pulse Resp BP Pulse Ox 03/01/21 12:00 97.1 F 63 18 159/90 H 96 03/01/21 10:50 97.6 F 68 18 165/91 H 95 03/01/21 08:12 66 17 163/86 H 96 03/01/21 07:53 63 17 173/93 H 95 03/01/21 07:28 97.5 F 67 17 197/99 H 95 03/01/21 07:27 70 17 186/84 H 95 - Problem List (1) T2DM (type 2 diabetes mellitus) SNOMED Code(s): 11710382 ICD Code: E11.9 - TYPE 2 DIABETES MELLITUS WITHOUT COMPLICATIONS Status: Acute Current Visit: Yes (2) Slurred speech SNOMED Code(s): 405391529 ICD Code: R47.81 - SLURRED SPEECH Status: Acute Current Visit: Yes (3) TIA (transient ischemic attack) SNOMED Code(s): 508984175 ICD Code: G45.9 - TRANSIENT CEREBRAL ISCHEMIC ATTACK, UNSPECIFIED Status: Acute Current Visit: Yes (4) Hypertension SNOMED Code(s): 19537561 ICD Code: I10 - ESSENTIAL (PRIMARY) HYPERTENSION Status: Acute Current Visit: No Problem List Initiated/Reviewed/Updated: Yes Orders Last 24hrs: Active Orders 24 hr Category Date Time Status Patient Status [ADT] Routine ADT 03/01/21 08:59 Active Accu Check [Blood Glucose Check, Bedside] [RC] BIDAC Care 03/01/21 12:54 Active Assess Neurological Status [RC] ASDIRECTED Care 03/01/21 07:27 Active Blood Glucose Check, Bedside [RC] STAT Care 03/01/21 07:28 Active Cardiac Monitoring [RC] Q8H Care 03/01/21 07:27 Active Height and Weight [RC] UPON Care 03/01/21 07:27 Active Initiate Acute Stroke Protocol [RC] STAT Care 03/01/21 07:27 Active NIH Stroke Scale [RC] ASDIRECTED Care 03/01/21 07:27 Active Oxygen Therapy [RC] ASDIRECTED Care 03/01/21 07:27 Active Stroke Education, General [RC] Click to Edit Care 03/01/21 07:27 Active Telemetry Monitoring [Cardiac Monitoring] [RC] . Care 03/01/21 09:40 Active DIRECTED Up With Assistance [RC] ASDIRECTED Care 03/01/21 07:27 Active Vital Signs [RC] Q15M Care 03/01/21 07:27 Active Brain w wo Cont [MR] Urgent Exams 03/01/21 11:43 Ordered Echo 2D wo Cont [US] Urgent Exams 03/01/21 11:42 Ordered DRUG SCREEN, URINE [URCHEM] Stat Lab 03/01/21 07:28 Ordered UA W/MICROSCOPIC [URIN] Stat Lab 03/01/21 07:28 Ordered Dextrose 50% in Water Med 03/01/21 12:54 Active 50 ml IVPUSH ASDIRECTED PRN Glucagon,Human Recombinant [GlucaGen] Med 03/01/21 12:54 Active 1 mg IM ASDIRECTED PRN Insulin Aspart [NovoLOG] Med 03/01/21 17:00 Active See Protocol SUBCUT BIDAC Patient's Own Medication [Ptom] Med 03/02/21 09:00 Active 2 each PO DAILY Sodium Chloride 0.9% [Normal Saline] Med 03/01/21 07:27 Active 10 ml IV ASDIRECTED PRN Sodium Chloride 0.9% [Saline Flush] Med 03/01/21 07:27 Active 10 ml FLUSH ASDIRECTED PRN Sodium Chloride 0.9% [Saline Flush] Med 03/01/21 07:27 Active 2.5 ml FLUSH ASDIRECTED PRN metFORMIN [Glucophage XR] Med 03/01/21 17:00 Active 2,000 mg PO BIDMEALS Peripheral IV Insertion Adult [OM.PC] Stat Oth 03/01/21 07:27 Ordered Medication Orders Dextrose/Water (50% Dextrose In Water 50 Ml Syringe) 50 ml IVPUSH ASDIRECTED PRN PRN Reason: Hypoglycemia Glucagon (Glucagon,Human Recombinant 1 Mg Vial) 1 mg IM ASDIRECTED PRN PRN Reason: Hypoglycemia Insulin Aspart (Insulin Aspart 100 Units/Ml 3 Ml Pen) 0 unit SUBCUT BIDAC JONATHAN; Protocol Metformin HCl (Metformin 500 Mg Tab.Er) 2,000 mg PO BIDMEALS JONATHAN Venlafaxine 75 Mg (Cap.Er) 2 each PO DAILY JONATHAN Sodium Chloride (Sodium Chloride 0.9% 10 Ml Syringe) 10 ml FLUSH ASDIRECTED PRN PRN Reason: Keep Vein Open Last Admin: 03/01/21 08:05 Dose: 10 ml Documented by: MILENA Sodium Chloride (Sodium Chloride 0.9% 2.5 Ml Syringe) 2.5 ml FLUSH ASDIRECTED PRN PRN Reason: Keep Vein Open Last Admin: 03/01/21 08:05 Dose: 2.5 ml Documented by: MILENA Sodium Chloride (Sodium Chloride 0.9% 20 Ml Sdv) 10 ml IV ASDIRECTED PRN PRN Reason: IV Use Last Admin: 03/01/21 08:05 Dose: 10 ml Documented by: MILENA Assessment/Plan Comment:: Slurred speech likely due to a TIA/ CVA- Pt currently has no residual symptoms. Admit pt to telemetry to look for any arrhythmias such as afib/flutter Check fasting lipid profile ASA, statin Neuro checks. Pt will need an ECHO and MRI brain. T2DM AC and HS blood sugar checks Resume OHA Morbid obesity life style modification HTN Will allow for permissive HT Pedal edema Pt will need nini wraps or compression wraps lasix RADHA continue with home CPAP use. Full code status. - Mortality Measure Prognosis:: Good
[2021-03-01] MEDS ORDERED: metFORMIN 500 MG Tab.ER PO SCH ×2 (17:00→17:45)
[2021-03-01] MEDS ORDERED: hydrALAZINE 20 MG/ML SDV IVPUSH PRN (17:54)
[2021-03-01] MEDS ORDERED: metFORMIN 500 MG Tab ONE (18:06)
[2021-03-01] MEDS: Insulin Aspart 100 Units/ML 3 ML Pen SUBCUT SCH (18:14)
[2021-03-02] MEDS ORDERED: atorvaSTATin 40 MG Tab PO SCH (00:09)
[2021-03-02] MEDS: Aspirin 325 MG Tab.EC PO SCH ×2 (00:29→08:32)
[2021-03-02] MEDS: Insulin Aspart 100 Units/ML 3 ML Pen SUBCUT SCH (08:32)
[2021-03-02] MEDS ORDERED: Venlafaxine 75 MG Cap.ER PO SCH (09:00)
[2021-03-02] MEDS ORDERED: metFORMIN 500 MG Tab ONE (09:25)
[2021-03-02] MEDS ORDERED: metFORMIN 500 MG Tab.ER PO SCH ×2 (09:34→10:30)
[2021-03-02] MEDS ORDERED: Semaglutide [Ozempic] 1 MG/0.75 ML Pen.Injctr SUBCUT SCH (11:00)
--- NOTE | 2021-03-02 11:04 | PCM.DCSUM1 ---
Discharge Summary - Hospital Course Free Text/Narrative:: 55 y/o obese male with h/o T2DM, HTN and tobacco use who was admitted to the hospital for two brief episodes of slurred speech lasting less than a minute each time. His symptoms were completely resolved during his hospital stay. He had a stroke work up that included a CT head and CTA head and neck. His head CT showed sequelae of chronic small vessel disease and no acute infarct. He also had a CTA of the head and neck prior to discharge. He was unable to get a brain MRI and ECHO due to lack of staffing. He was recommended to see his PCP in the next 1 wk to have these tests ordered on an outpatient basis. He was strongly advised to abstain from tobacco use and to start an exercise program. Discharge instructions: Activity as tolerated. Diet: diabetic/cardiac diet Follow up with PCP within a wk for outpt MRI brain and ECHO Physical exam: General: Obese middle aged male. In no distress HEENT: NC, AT, PERRLA, EOMI. Short thick and supple neck. CVS: S1S2 appreciated. RRR lungs: clear with no rales or wheezes pa: soft,non tender, bowel sounds present. Ext: no clubbing or cyanosis. 2+ peripheral edema Neuro: strength is 5/5 bilaterally. sensation is intact. Speech is normal. Gait is normal. psych: stable mood and affect. Diagnosis: Stroke: No Modified [place] Scale: No Symptoms at All Modified [place] Scale Score: 0 - Discharge Data Discharge Date: 03/02/21 Discharge Disposition: Home, Self-Care 01 Condition: Fair - Referral to Home Health Primary Care Physician: Ronald Henson MD - Discharge Diagnosis/Problem(s) (1) T2DM (type 2 diabetes mellitus) SNOMED Code(s): 52305950 ICD Code: E11.9 - TYPE 2 DIABETES MELLITUS WITHOUT COMPLICATIONS Status: Acute Current Visit: Yes (2) Slurred speech SNOMED Code(s): 299230203 ICD Code: R47.81 - SLURRED SPEECH Status: Acute Current Visit: Yes (3) TIA (transient ischemic attack) SNOMED Code(s): 480183118 ICD Code: G45.9 - TRANSIENT CEREBRAL ISCHEMIC ATTACK, UNSPECIFIED Status: Acute Current Visit: Yes (4) Hypertension SNOMED Code(s): 75226693 ICD Code: I10 - ESSENTIAL (PRIMARY) HYPERTENSION Status: Acute Current Visit: No - Discharge Plan *PRESCRIPTION DRUG MONITORING PROGRAM REVIEWED*: No *COPY OF PRESCRIPTION DRUG MONITORING REPORT IN PATIENT JIM: No Prescriptions/Med Rec: RX: atorvaSTATin [Lipitor] 80 mg PO BEDTIME #60 tablet Home Medications: Home Meds RX: Venlafaxine [Effexor XR] 150 mg PO DAILY 07/22/14 [History] RX: Chlorthalidone 12.5 mg PO DAILY #10 tab 12/27/20 [Rx] RX: Losartan Potassium 100 mg PO DAILY 12/27/20 [History] RX: Metoprolol Succinate 200 mg PO DAILY 12/27/20 [History] RX: Semaglutide [Ozempic] 1 mg SQ WEEKLY 12/27/20 [History] RX: metFORMIN [Glucophage XR] 2,000 mg PO DAILY 12/27/20 [History] RX: Erythromycin Base [Erythromycin] 5 mg TOP TID 03/01/21 [History] RX: amLODIPine [Norvasc] 10 mg PO DAILY 03/01/21 [History] RX: Aspirin [Ecotrin EC] 325 mg PO DAILY tab.ec 03/02/21 [Rx] RX: Insulin Aspart [NovoLOG] 0 unit SUBCUT BIDAC pen 03/02/21 [Rx] RX: atorvaSTATin [Lipitor] 80 mg PO BEDTIME #60 tablet 03/02/21 [Rx] Forms: ED Department Discharge Referrals: Ronald Henson MD [Primary Care Provider] - - Discharge Summary/Plan Comment DC Time >30 min.: Yes Total # of Minutes for Discharge Time: 35 mins - Patient Data Vitals - Most Recent: Last Vital Signs Temp 97.7 F 03/02/21 07:59 Pulse 72 03/02/21 07:59 Resp 18 03/02/21 07:59 BP 180/101 H 03/02/21 07:59 Pulse Ox 97 03/02/21 07:59 Weight - Most Recent: 262 lb 12.8 oz Lab Results - Last 24 hrs: Laboratory Results - last 24 hr 03/01/21 03/01/21 03/02/21 Range/Units 12:40 16:49 06:34 POC Glucose 236 H 205 H 163 H (70-99) mg/dL Triglycerides (0-200) mg/dL Cholesterol (50-200) mg/dL LDL Cholesterol, Calc (60-180) mg/dL VLDL Cholesterol (5-55) mg/dL HDL Cholesterol (40-60) mg/dL Cholesterol/HDL Ratio (3.3-6.0) 03/02/21 Range/Units 06:51 POC Glucose (70-99) mg/dL Triglycerides 158 (0-200) mg/dL Cholesterol 193 (50-200) mg/dL LDL Cholesterol, Calc 125 (60-180) mg/dL VLDL Cholesterol 31 (5-55) mg/dL HDL Cholesterol 36 L (40-60) mg/dL Cholesterol/HDL Ratio 5.4 (3.3-6.0) Med Orders - Current: Current Medications Amlodipine Besylate (Amlodipine 5 Mg Tab) 10 mg PO DAILY [facility] Aspirin (Aspirin 325 Mg Tab.Ec) 325 mg PO DAILY [facility] Last Admin: 03/02/21 08:32 Dose: 325 mg Documented by: Atorvastatin Calcium (Atorvastatin 40 Mg Tab) 40 mg PO BEDTIME [facility] Last Admin: 03/02/21 00:29 Dose: 40 mg Documented by: Chlorthalidone (Chlorthalidone 25 Mg Tab) 12.5 mg PO DAILY [facility] Dextrose/Water (50% Dextrose In Water 50 Ml Syringe) 50 ml IVPUSH ASDIRECTED PRN PRN Reason: Hypoglycemia Glucagon (Glucagon,Human Recombinant 1 Mg Vial) 1 mg IM ASDIRECTED PRN PRN Reason: Hypoglycemia Hydralazine HCl (Hydralazine 20 Mg/Ml Sdv) 10 mg IVPUSH ONETIME PRN PRN Reason: Hypertension Last Admin: 03/02/21 09:31 Dose: 10 mg Documented by: Insulin Aspart (Insulin Aspart 100 Units/Ml 3 Ml Pen) 0 unit SUBCUT BIDAC [facility]; Protocol Last Admin: 03/02/21 08:32 Dose: 1 units Documented by: Non-Formulary Medication (Losartan Potassium) 100 mg PO DAILY [facility] Non-Formulary Medication (Metoprolol Succinate [Metoprolol Succinate]) 200 mg PO DAILY [facility] Non-Formulary Medication (Semaglutide [Ozempic]) 1 mg SQ WEEKLY [facility] Metformin 500 Mg Tab (.Er) 4 each PO DAILY [facility] Last Admin: 03/02/21 10:32 Dose: 4 each Documented by: Venlafaxine Er 150mg (Capsule) 1 each PO DAILY [facility] Last Admin: 03/02/21 10:33 Dose: 1 each Documented by: Sodium Chloride (Sodium Chloride 0.9% 10 Ml Syringe) 10 ml FLUSH ASDIRECTED PRN PRN Reason: Keep Vein Open Last Admin: 03/01/21 08:05 Dose: 10 ml Documented by: Sodium Chloride (Sodium Chloride 0.9% 2.5 Ml Syringe) 2.5 ml FLUSH ASDIRECTED PRN PRN Reason: Keep Vein Open Last Admin: 03/01/21 08:05 Dose: 2.5 ml Documented by: Sodium Chloride (Sodium Chloride 0.9% 20 Ml Sdv) 10 ml IV ASDIRECTED PRN PRN Reason: IV Use Last Admin: 03/01/21 08:05 Dose: 10 ml Documented by: Discontinued Medications Metformin HCl (Metformin 500 Mg Tab.Er) 2,000 mg PO BIDMEALS [facility] Last Admin: 03/01/21 18:42 Dose: Not Given Documented by: Metformin HCl (Metformin 500 Mg Tab.Er) 1,000 mg PO BIDMEALS [facility] Last Admin: 03/01/21 18:35 Dose: Not Given Documented by: Metformin HCl (Metformin 500 Mg Tab) Confirm Administered Dose 1,000 mg .ROUTE .STK-MED ONE Stop: 03/01/21 18:07 Last Admin: 03/01/21 18:12 Dose: 1,000 mg Documented by: Metformin HCl (Metformin 500 Mg Tab) Confirm Administered Dose 1,000 mg .ROUTE .STK-MED ONE Stop: 03/02/21 09:26 Last Admin: 03/02/21 09:34 Dose: Not Given Documented by: Venlafaxine HCl (Venlafaxine 75 Mg Cap.Er) 150 mg PO DAILY [facility] Last Admin: 03/01/21 13:21 Dose: 150 mg Documented by:
[2021-03-02] MEDS ORDERED: METOPROLOL SUCCINATE 200 MG PO SCH (11:30)
--- NOTE | 2021-03-02 11:56 | CT ---
INDICATION: Transient ischemic attack. TECHNIQUE: CTA head with contrast bolus tracking and 3D MIP reconstruction. FINDINGS: There is normal filling of the intracranial vasculature. There is no significant intracranial stenosis. There is no large vessel occlusion. No aneurysm is identified. IMPRESSION: No large vessel occlusion. Please note that all CT scans at this facility use dose modulation, iterative reconstruction, and/or weight-based dosing when appropriate to reduce radiation dose to as low as reasonably achievable. Dictated by Unruly Hernandez MD @ 03/02/2021 8:10:53 PM (Electronically Signed)
--- NOTE | 2021-03-02 12:13 | CT ---
INDICATION: Transient ischemic attack. TECHNIQUE: CTA neck with contrast bolus tracking and 3D MIP reconstruction. FINDINGS: There is irregular plaque in the proximal left internal carotid artery. There is minor plaque at the origin of the right internal carotid artery. There is no significant stenosis. There is no evidence for dissection. There is no vertebral artery stenosis or dissection. IMPRESSION: Carotid atherosclerotic disease without significant stenosis. Please note that all CT scans at this facility use dose modulation, iterative reconstruction, and/or weight-based dosing when appropriate to reduce radiation dose to as low as reasonably achievable. Dictated by Unruly Hernandez MD @ 03/02/2021 8:11:44 PM (Electronically Signed)
[2021-03-02 14:00] VITALS: BP 176/99; PULSE 65
== END 2021-03-02 13:25 | disposition home or self-care (01) ==
LOC: MW.ED 07:17 → MW.MS 09:33
PROVIDERS: ADMIT Hospitalist; ATTEND Hospitalist
DX: R47.81 Slurred speech (principal); I10 Essential (primary) hypertension; G47.33 Obstructive sleep apnea (adult) (pediatric); E11.9 Type 2 diabetes mellitus without complications; E86.0 Dehydration; F41.9 Anxiety disorder, unspecified; F32.9 Major depressive disorder, single episode, unspecified; F17.210 Nicotine dependence, cigarettes, uncomplicated; E66.01 Morbid (severe) obesity due to excess calories; Z79.899 Other long term (current) drug therapy; Z98.890 Other specified postprocedural states; Z68.36 Body mass index [BMI] 36.0-36.9, adult
CPT/HCPCS: 36415; 70450; 70496; 70498; 71045; 80053; 80061; 80307; 82947; 84443; 84484; 85025; 85610; 85730; 93005; 96374; 99285; A9270; G0378; J0360; J1815

== ENCOUNTER 2021-12-08 13:15 | Emergency (ER) | payer OTHER ==
[2021-12-08 14:08] LABS: CARBON DIOXIDE,CO2 30.4 mmol/L (21.0-32.0); POTASSIUM,K 3.8 mmol/L (3.5-5.1)
[2021-12-08] MEDS ORDERED: Magnesium Oxide 400 MG Tab PO ONE (14:19)
[2021-12-08 17:11] VITALS: BP 178/104; PULSE 82
== END 2021-12-08 15:05 | disposition home or self-care (01) ==
LOC: MW.ED 13:15
DX: I10 Essential (primary) hypertension (principal); E11.9 Type 2 diabetes mellitus without complications; E66.9 Obesity, unspecified; Z68.36 Body mass index [BMI] 36.0-36.9, adult; Z79.899 Other long term (current) drug therapy; Z79.84 Long term (current) use of oral hypoglycemic drugs; Z79.82 Long term (current) use of aspirin; Z79.4 Long term (current) use of insulin; Z86.16 Personal history of COVID-19
CPT/HCPCS: 36415; 80053; 83735; 84484; 85025; 93005; 99284; A9270

== ENCOUNTER 2022-02-16 11:45 | Emergency (ER) | payer OTHER ==
[2022-02-16] MEDS ORDERED: Sodium Chloride 0.9% 10 ML Syringe FLUSH PRN (11:56)
[2022-02-16] MEDS ORDERED: Sodium Chloride 0.9% 2.5 ML Syringe FLUSH PRN (11:56)
[2022-02-16 13:09] LABS: BLOOD UREA NITROGEN,BUN 19 mg/dL (7.0-18.0); CARBON DIOXIDE,CO2 26.1 mmol/L (21.0-32.0); CHLORIDE,CL 100 mmol/L (98-107); GLUCOSE RANDOM 308 mg/dL (74-106); POTASSIUM,K 3.6 mmol/L (3.5-5.1); SODIUM,NA 137 mmol/L (136-148)
[2022-02-16 13:14] LABS: ESTIMATED GFR 78 mL/min (>60)
[2022-02-16] MEDS ORDERED: Iopamidol 755 MG/ML 500 ML Multipack Bottle IVPUSH STA (13:27)
[2022-02-16] MEDS ORDERED: Gadobenate Dimeglumine 529 MG/ML 20 ML SDV IVPUSH STA (14:17)
[2022-02-16 20:10] VITALS: BP 170/90; PULSE 70
== END 2022-02-16 16:23 ==
LOC: MW.ED 11:45
DX: I63.9 Cerebral infarction, unspecified (principal); I10 Essential (primary) hypertension; E11.9 Type 2 diabetes mellitus without complications; E66.9 Obesity, unspecified; Z68.36 Body mass index [BMI] 36.0-36.9, adult; Z79.82 Long term (current) use of aspirin; Z79.4 Long term (current) use of insulin; Z79.899 Other long term (current) drug therapy; Z20.822 Contact with and (suspected) exposure to COVID-19
CPT/HCPCS: 36415; 70450; 70450-26; 70486; 70486-26; 70496; 70496-26; 70498; 70498-26; 70553; 70553-26; 71045; 71045-26; 72125; 72125-26; 80053; 80305-QW; 80307; 81003; 83605; 84484; 85025; 85610; 93005; 96374; 99285-25; A9577; J3490; Q9967; U0002

== ENCOUNTER 2022-09-27 10:19 | Emergency (ER) | payer OTHER ==
[2022-09-27] MEDS ORDERED: Sodium Chloride 0.9% 10 ML Syringe FLUSH PRN (10:29)
[2022-09-27] MEDS ORDERED: Sodium Chloride 0.9% 2.5 ML Syringe FLUSH PRN (10:29)
[2022-09-27 10:33] LABS: BASOPHILS PERCENT AUTO 0.5 % (0.0-1.5); EOSINOPHILS ABSOLUTE AUTO 0.1 K/uL (0.0-0.7); HEMATOCRIT 38.9 % (38.0-50.0); LYMPHOCYTES ABSOLUTE AUTO 2.1 K/uL (0.6-2.4); LYMPHOCYTES PERCENT AUTO 24.6 % (16.0-40.0); MEAN CORPUSCULAR HEMOGLOBIN 31.3 pg (27.0-32.0); MEAN CORPUSCULAR VOLUME 86.8 fL (80.0-98.0); MONOCYTES ABSOLUTE AUTO 0.6 K/uL (0.0-0.8); MONOCYTES PERCENT AUTO 7.1 % (0.0-15.0); NEUTROPHILS ABSOLUTE AUTO 5.8 K/uL (1.4-5.7); NEUTROPHILS PERCENT AUTO 66.8 % (48.0-80.0); NRBC ABSOLUTE 0 K/uL; PLATELET COUNT,PLT 179 K/uL (150-400); RED BLOOD CELL COUNT 4.48 M/uL (4.50-5.90)
[2022-09-27 10:46] LABS: INR 1.87 (0.86-1.11)
[2022-09-27 10:48] LABS: ETHANOL BLOOD MEDICAL <3 mg/dL; MAGNESIUM 1.7 mg/dL (1.8-2.4)
[2022-09-27 10:53] LABS: ALBUMIN 3.4 g/dL (3.4-5.0); BILIRUBIN TOTAL 0.6 mg/dL (0.2-1.0); CALCIUM 9.1 mg/dL (8.5-10.1); CARBON DIOXIDE,CO2 24.3 mmol/L (21.0-32.0); CREATININE 1.3 mg/dL (0.8-1.3); EST CRCL DRUG DOSING (CG) 59.19 mL/min; POTASSIUM,K 3.4 mmol/L (3.5-5.1); PROTEIN TOTAL,TP 6.7 g/dL (6.4-8.2)
[2022-09-27] MEDS ORDERED: Magnesium Sulfate/Water 2 GM in Premix Bag 1 BAG IV STA (10:58)
[2022-09-27] MEDS ORDERED: Sodium Chloride 0.9% 1,000 ML IV STA (11:37)
[2022-09-27] MEDS ORDERED: Iopamidol 755 Mg/ML 100 ML Bottle IVPUSH ONE (11:57)
[2022-09-27 12:57] VITALS: BP 147/93; PULSE 61
== END 2022-09-27 14:47 | disposition home or self-care (01) ==
LOC: MW.ED 10:19
DX: R56.9 Unspecified convulsions (principal); E83.42 Hypomagnesemia; E11.9 Type 2 diabetes mellitus without complications; E66.9 Obesity, unspecified; I10 Essential (primary) hypertension; Z79.82 Long term (current) use of aspirin; Z86.16 Personal history of COVID-19; Z79.4 Long term (current) use of insulin; Z79.899 Other long term (current) drug therapy; Z68.35 Body mass index [BMI] 35.0-35.9, adult
CPT/HCPCS: 36415; 70450; 70496; 70498; 80053; 80307; 83605; 83735; 84443; 85025; 85610; 93005; 96361; 96365; 96375; 99285; J1953; J3475; J3490; J7030; J7060; Q9967; 93010; 99283

== ENCOUNTER 2024-08-18 07:46 | Day surgery (SDC) | payer OTHER, MEDICARE ==
[~2024-08-18 07:46] MED LIST: propofoL 500 MG/50 ML 50 ML ONE
[2024-08-18] MEDS: Lactated Ringers 1,000 ML IV SCH (07:46)
[2024-08-18 09:50] VITALS: PULSE 64
[2024-08-18 10:33] VITALS: BP 124/75
== END 2024-08-18 10:23 | disposition home or self-care (01) ==
LOC: MW.SDS 07:46
PROVIDERS: ATTEND Surgery
DX: Z12.11 Encounter for screening for malignant neoplasm of colon (principal); D12.2 Benign neoplasm of ascending colon; D12.0 Benign neoplasm of cecum; D12.6 Benign neoplasm of colon, unspecified; R19.5 Other fecal abnormalities; I10 Essential (primary) hypertension; E11.9 Type 2 diabetes mellitus without complications; E66.9 Obesity, unspecified; I48.91 Unspecified atrial fibrillation; Z68.34 Body mass index [BMI] 34.0-34.9, adult; Z79.84 Long term (current) use of oral hypoglycemic drugs; Z87.891 Personal history of nicotine dependence; Z79.899 Other long term (current) drug therapy
CPT/HCPCS: 45385; 88305; J2704; J7120; 00811

== ENCOUNTER 2024-08-27 14:39 | Observation (INO) | payer MEDICARE, OTHER ==
[2024-08-27] MEDS ORDERED: Sodium Chloride 0.9% 10 ML Syringe FLUSH PRN ×2 (15:07→15:17)
[2024-08-27] MEDS ORDERED: Sodium Chloride 0.9% 20 ML SDV IV PRN ×2 (15:07→15:17)
[2024-08-27] MEDS ORDERED: Sodium Chloride 0.9% 2.5 ML Syringe FLUSH PRN ×2 (15:07→15:17)
[2024-08-27 15:38] LABS: BASOPHILS ABSOLUTE AUTO 0.02 K/uL (0.00-0.20); BASOPHILS PERCENT AUTO 0.3 % (0.0-1.0); EOSINOPHILS ABSOLUTE AUTO 0.11 K/uL (0.00-0.45); EOSINOPHILS PERCENT AUTO 1.5 % (0.0-6.0); HEMATOCRIT 35.3 % (42.0-52.0); HEMOGLOBIN 12.5 g/dL (14.0-18.0); IMMATURE GRAN ABSOLUTE AUTO 0.01 K/uL (0.00-0.05); IMMATURE GRAN PERCENT AUTO 0.1 % (0.0-0.4); LYMPHOCYTES ABSOLUTE AUTO 2.19 K/uL (1.00-4.80); LYMPHOCYTES PERCENT AUTO 30.6 % (24.0-44.0); MEAN CORPUSCULAR HEMOGLOBIN 31.2 pg (28.0-32.0); MEAN CORPUSCULAR HGB CONC 35.4 g/dL (32.0-36.0); MEAN PLATELET VOLUME 9.3 fL (9.4-12.4); MONOCYTES ABSOLUTE AUTO 0.48 K/uL (0.00-0.80); MONOCYTES PERCENT AUTO 6.7 % (0.0-8.0); NEUTROPHILS ABSOLUTE AUTO 4.34 K/uL (1.80-7.70); NEUTROPHILS PERCENT AUTO 60.8 % (41.0-71.0); PLATELET COUNT,PLT 205 K/uL (150-400); RED BLOOD CELL COUNT 4.01 M/uL (4.52-5.90); WHITE BLOOD CELL COUNT,WBC 7.15 K/uL (3.9-11.3)
[2024-08-27 16:01] LABS: ALBUMIN 3.1 g/dL (3.4-5.0); BILIRUBIN TOTAL 0.5 mg/dL (0.2-1.0); CARBON DIOXIDE,CO2 27.6 mmol/L (21.0-32.0); CREATININE 1.2 mg/dL (0.8-1.3); EST CRCL DRUG DOSING (CG) 68.85 mL/min; PROTEIN TOTAL,TP 6.1 g/dL (6.4-8.2)
[2024-08-27 16:06] LABS: INR 1.98 (0.86-1.11); PTT,PARTIAL THROMBOPLSTIN TIME 33.2 SEC (23.9-30.7)
[2024-08-27] MEDS: Iopamidol 755 MG/ML 500 ML Multipack Bottle IVPUSH STA (16:46)
[2024-08-27] MEDS: Phytonadione 10 MG in Sodium Chloride 0.9% 50 ML IV ONE (20:48)
[2024-08-27 21:05] LABS: HEMATOCRIT 34.9 % (42.0-52.0); HEMOGLOBIN 12.4 g/dL (14.0-18.0)
[2024-08-28 05:52] LABS: BASOPHILS ABSOLUTE AUTO 0.05 K/uL (0.00-0.20); BASOPHILS PERCENT AUTO 0.7 % (0.0-1.0); EOSINOPHILS ABSOLUTE AUTO 0.12 K/uL (0.00-0.45); EOSINOPHILS PERCENT AUTO 1.7 % (0.0-6.0); HEMATOCRIT 30.8 % (42.0-52.0); HEMOGLOBIN 10.5 g/dL (14.0-18.0); IMMATURE GRAN ABSOLUTE AUTO 0.01 K/uL (0.00-0.05); IMMATURE GRAN PERCENT AUTO 0.1 % (0.0-0.4); LYMPHOCYTES ABSOLUTE AUTO 2.48 K/uL (1.00-4.80); LYMPHOCYTES PERCENT AUTO 35.6 % (24.0-44.0); MEAN CORPUSCULAR HEMOGLOBIN 30.4 pg (28.0-32.0); MEAN CORPUSCULAR HGB CONC 34.1 g/dL (32.0-36.0); MEAN CORPUSCULAR VOLUME 89.3 fL (83.0-99.0); MEAN PLATELET VOLUME 9.2 fL (9.4-12.4); MONOCYTES ABSOLUTE AUTO 0.53 K/uL (0.00-0.80); MONOCYTES PERCENT AUTO 7.6 % (0.0-8.0); NEUTROPHILS ABSOLUTE AUTO 3.77 K/uL (1.80-7.70); NEUTROPHILS PERCENT AUTO 54.3 % (41.0-71.0); PLATELET COUNT,PLT 178 K/uL (150-400); RED BLOOD CELL COUNT 3.45 M/uL (4.52-5.90); WHITE BLOOD CELL COUNT,WBC 6.96 K/uL (3.9-11.3)
[2024-08-28 06:08] LABS: INR 1.33 (0.86-1.11); PTT,PARTIAL THROMBOPLSTIN TIME 29.5 SEC (23.9-30.7)
[2024-08-28 06:18] LABS: BILIRUBIN TOTAL 0.6 mg/dL (0.2-1.0); CALCIUM 8.5 mg/dL (8.5-10.1); CARBON DIOXIDE,CO2 28.3 mmol/L (21.0-32.0); CREATININE 1.2 mg/dL (0.8-1.3); EST CRCL DRUG DOSING (CG) 68.85 mL/min; POTASSIUM,K 3.8 mmol/L (3.5-5.1); PROTEIN TOTAL,TP 6.1 g/dL (6.4-8.2)
[2024-08-28] MEDS: Polyethylene Glycol/Electrolytes 4,000 ML Bottle PO ONE (08:30)
[2024-08-28] MEDS ORDERED: Sodium Chloride 0.9% 2.5 ML Syringe FLUSH PRN (10:37)
[2024-08-28] MEDS ORDERED: Sodium Chloride 0.9% 10 ML Syringe FLUSH PRN (10:37)
[2024-08-28] MEDS ORDERED: Acetaminophen 325 MG Tab PO PRN (10:37)
[2024-08-28] MEDS ORDERED: Ondansetron 4 MG/2 ML SDV IVPUSH PRN (10:37)
[2024-08-28] MEDS: Carvedilol 25 MG Tab PO SCH (12:20)
[2024-08-28 15:23] LABS: HEMATOCRIT 31.8 % (42.0-52.0); HEMOGLOBIN 11.1 g/dL (14.0-18.0)
[2024-08-28] MEDS ORDERED: propofoL 500 MG/50 ML 50 ML ONE (16:41)
[2024-08-28] MEDS ORDERED: Lidocaine 2% 5 ML SDV ONE (16:42)
[2024-08-28] MEDS ORDERED: ePHEDrine 50 MG/ML SDV ONE (17:19)
[2024-08-29 05:45] LABS: BASOPHILS ABSOLUTE AUTO 0.02 K/uL (0.00-0.20); BASOPHILS PERCENT AUTO 0.3 % (0.0-1.0); EOSINOPHILS ABSOLUTE AUTO 0.13 K/uL (0.00-0.45); EOSINOPHILS PERCENT AUTO 2.2 % (0.0-6.0); HEMATOCRIT 28.8 % (42.0-52.0); HEMOGLOBIN 10.1 g/dL (14.0-18.0); IMMATURE GRAN ABSOLUTE AUTO 0.03 K/uL (0.00-0.05); IMMATURE GRAN PERCENT AUTO 0.5 % (0.0-0.4); LYMPHOCYTES ABSOLUTE AUTO 1.84 K/uL (1.00-4.80); LYMPHOCYTES PERCENT AUTO 31.3 % (24.0-44.0); MEAN CORPUSCULAR HEMOGLOBIN 30.6 pg (28.0-32.0); MEAN CORPUSCULAR HGB CONC 35.1 g/dL (32.0-36.0); MEAN CORPUSCULAR VOLUME 87.3 fL (83.0-99.0); MEAN PLATELET VOLUME 9.2 fL (9.4-12.4); MONOCYTES ABSOLUTE AUTO 0.42 K/uL (0.00-0.80); MONOCYTES PERCENT AUTO 7.1 % (0.0-8.0); NEUTROPHILS ABSOLUTE AUTO 3.44 K/uL (1.80-7.70); NEUTROPHILS PERCENT AUTO 58.6 % (41.0-71.0); PLATELET COUNT,PLT 163 K/uL (150-400); WHITE BLOOD CELL COUNT,WBC 5.88 K/uL (3.9-11.3)
[2024-08-29 06:00] LABS: INR 1.1 (0.86-1.11)
[2024-08-29 06:07] LABS: CALCIUM 8.3 mg/dL (8.5-10.1); CARBON DIOXIDE,CO2 25.9 mmol/L (21.0-32.0); EST CRCL DRUG DOSING (CG) 82.62 mL/min; MAGNESIUM 1.9 mg/dL (1.8-2.4); POTASSIUM,K 3.6 mmol/L (3.5-5.1)
[2024-08-29] MEDS ORDERED: DHA PO SCH (09:00)
[2024-08-29] MEDS ORDERED: [UNRECOGNIZED DRUG - OTHER] PO SCH (09:00)
[2024-08-29] MEDS ORDERED: FISH OIL PO SCH (09:00)
[2024-08-29] MEDS ORDERED: OMEGA PO SCH (09:00)
[2024-08-29] MEDS ORDERED: EPA PO SCH (09:00)
[2024-08-29] MEDS: Rosuvastatin 10 MG Tab PO SCH (09:07)
[2024-08-29] MEDS: ARIPiprazole 10 MG Tab PO SCH (09:07)
[2024-08-29] MEDS: Venlafaxine 75 MG Cap.ER PO SCH (09:08)
[2024-08-29] MEDS: Enoxaparin 100 MG/1 ML Syringe SUBCUT ONE (09:08)
[2024-08-29 12:33] VITALS: BP 130/71; PULSE 74
[2024-08-29] MEDS ORDERED: Warfarin Sliding Scale SCH (14:00)
[2024-08-29] MEDS ORDERED: Warfarin 10 MG Tab PO SCH (14:00)
== END 2024-08-29 10:35 | disposition home or self-care (01) ==
LOC: MW.ED 14:39 → MW.MS 21:37
PROVIDERS: ADMIT Family Medicine; ATTEND Family Medicine
DX: K62.5 Hemorrhage of anus and rectum (principal); I10 Essential (primary) hypertension; E11.9 Type 2 diabetes mellitus without complications; F32.A Depression, unspecified; E78.00 Pure hypercholesterolemia, unspecified; Z79.84 Long term (current) use of oral hypoglycemic drugs; Z79.01 Long term (current) use of anticoagulants; Z79.899 Other long term (current) drug therapy
CPT/HCPCS: 36415; 36430; 45378; 74178; 80048; 80053; 82947; 83605; 83735; 85014; 85018; 85025; 85610; 85730; 86850; 86900; 86901; 93005; 96365; 99285; A9270; G0378; J1650; J2003; J2704; J3430; P9017; Q9967; 93010; 99222; 99238; J3490

== ENCOUNTER 2025-02-18 18:42 | Emergency (ER) | payer MEDICARE, OTHER ==
[2025-02-18 19:45] LABS: BASOPHILS ABSOLUTE AUTO 0.04 K/uL (0.00-0.20); BASOPHILS PERCENT AUTO 0.5 % (0.0-1.0); EOSINOPHILS ABSOLUTE AUTO 0.16 K/uL (0.00-0.45); EOSINOPHILS PERCENT AUTO 1.8 % (0.0-6.0); IMMATURE GRAN ABSOLUTE AUTO 0.02 K/uL (0.00-0.05); IMMATURE GRAN PERCENT AUTO 0.2 % (0.0-0.4); LYMPHOCYTES ABSOLUTE AUTO 2.75 K/uL (1.00-4.80); LYMPHOCYTES PERCENT AUTO 31.7 % (24.0-44.0); MEAN PLATELET VOLUME 9.1 fL (9.4-12.4); MONOCYTES ABSOLUTE AUTO 0.72 K/uL (0.00-0.80); MONOCYTES PERCENT AUTO 8.3 % (0.0-8.0); NEUTROPHILS ABSOLUTE AUTO 4.98 K/uL (1.80-7.70); NEUTROPHILS PERCENT AUTO 57.5 % (41.0-71.0); NRBC ABSOLUTE 0.00 K/uL (0.00-0.02); NRBC PERCENT 0.0 /100WBC (0.0-0.2); PLATELET COUNT,PLT 188 K/uL (150-400); RED BLOOD CELL COUNT 4.61 M/uL (4.52-5.90); WHITE BLOOD CELL COUNT,WBC 8.67 K/uL (3.9-11.3)
[2025-02-18 20:06] LABS: INR 3.75 (0.86-1.11)
[2025-02-18 20:12] LABS: A/G RATIO 0.9 (0.9-1.6); ALANINE AMINOTRANSFERASE,ALT 54.0 IU/L (14-63); ASPARTATE AMNIOTRANSFERASE,AST 26.0 IU/L (15-37); BILIRUBIN TOTAL 0.6 mg/dL (0.2-1.0); BLOOD UREA NITROGEN,BUN 30.0 mg/dL (7.0-18.0); CARBON DIOXIDE,CO2 30.3 mmol/L (21.0-32.0); CHLORIDE,CL 103.0 mmol/L (98-107); CREATININE 1.4 mg/dL (0.8-1.3); EST CRCL DRUG DOSING (CG) 59.01 mL/min; GLUCOSE RANDOM 128.0 mg/dL (74-106); POTASSIUM,K 4.0 mmol/L (3.5-5.1); PROTEIN TOTAL,TP 6.7 g/dL (6.4-8.2); SODIUM,NA 138.0 mmol/L (136-148)
[2025-02-18 20:13] LABS: ESTIMATED GFR 57.0 mL/min (>60)
[2025-02-18 23:18] VITALS: BP 116/70; PULSE 58
== END 2025-02-18 23:46 | disposition home or self-care (01) ==
LOC: MW.ED 18:42
DX: M79.651 Pain in right thigh (principal); R79.1 Abnormal coagulation profile; I10 Essential (primary) hypertension; E78.00 Pure hypercholesterolemia, unspecified; E11.9 Type 2 diabetes mellitus without complications; Z75.3 Unavailability and inaccessibility of health-care facilities; Z79.899 Other long term (current) drug therapy; Z79.85 Long-term (current) use of injectable non-insulin antidiabetic drugs; Z79.84 Long term (current) use of oral hypoglycemic drugs; Z86.73 Personal history of transient ischemic attack (TIA), and cerebral infarction without residual deficits; Z79.01 Long term (current) use of anticoagulants
CPT/HCPCS: 36415; 73552; 80053; 85025; 85610; 93005; 93971; 99284; A9270; 93010; 99283